=== PATIENT | female | born 2000 | race Caucasian/White ===

== ENCOUNTER → 2020-03-01 | Outpatient (CLI) | payer OTHER, SELFPAY ==
[2020-03-01 09:08] VITALS: BMI 31.2
[2020-03-01 18:04] LABS: Amphetamine Urine VISTA NEGATIVE (<1000 ng/mL); Barbiturate Urine VISTA NEGATIVE (< 200 ng/mL); Benzodiazepine Urine VISTA NEGATIVE (< 200 ng/mL); Cocaine Urine VISTA NEGATIVE (< 300 ng/mL); Ecstacy Urine VISTA NEGATIVE (< 500 ng/mL); Methadone Urine VISTA NEGATIVE (< 300 ng/mL); PCP Urine VISTA NEGATIVE (< 25 ng/mL); THC Urine VISTA NEGATIVE (< 50 ng/mL); Vista UDS pH Range 7
[2020-03-01 21:34] LABS: Chlamydia Trachomatis by PCR Negative (Negative); Neisserai gonorrhoeae by PCR Negative (Negative); Probe Check PASS; Sample Adequacy Control PASS; Specimen Processing Control PASS
== END | disposition home or self-care (01) ==
LOC: LABSPEC 15:56
PROVIDERS: PCP Family Medicine; Referring Provider Obstetrics & Gynecology; Visit Provider Obstetrics & Gynecology
DX: Z34.00 Encounter for supervision of normal first pregnancy, unspecified trimester (principal)
CPT/HCPCS: 80307; 87086; 87088; 87491; 87591

== ENCOUNTER → 2020-03-21 | Outpatient (CLI) | payer OTHER, SELFPAY ==
[2020-03-01 09:08] VITALS: BMI 31.2
[2020-03-21 11:14] LABS: Absolute Lymphocyte Count 1.43 X10^3/uL (0.83-4.51); Absolute Neutrophil Count 4.1 X10^3/uL (2.0-7.7); Basophil# 0.01 X10^3/uL; Basophil% 0.2 % (0-1); Eosinophil# 0.03 X10^3/uL; Eosinophils% 0.5 % (0-5); Hematocrit 37.4 % (37-47); Lymphocyte # 1.43 X10^3/ul (4.0); Lymphocyte % 23.8 % (19-41); Mean Corp Hgb Conc 34.8 g/dL (32-36); Mean Corpuscular Hgb 29.3 pg (27.0-32.0); Mean Corpuscular Volume 84.4 fL (81-99); Mean Platelet Vol. 10.4 fl (6.2-12.0); Monocyte% 6.6 % (0-10); NRBC Flagged by Analyzer 0 % (0-5); Neutrophil # 4.14 X10^3/uL (2.7-7.7); Neutrophil % 68.7 % (47-70); Platelet Count 209 K/mm3 (150-450); RBC Distribution Width CV 12.1 % (11.6-14.6); RBC Distribution Width SD 36.7 fl (35.1-43.9); Red Blood Count 4.43 M/mm3 (4.2-5.4)
[2020-03-21 12:23] LABS: HIV - WCH Non-Reactive (Nonreactive); Hepatitis B Surface Antigen Non-Reactive (Nonreactive); Hepatitis C Antibody Non-Reactive (Nonreactive); Rubella IgG 118.3 IU/mL
[2020-03-21 15:17] LABS: NATERA MAILED SPECIMEN
[2020-03-22 00:55] LABS: Rapid Plasmin Reagin (RPR) NONREACTIVE (NONREACTIVE)
[2020-03-23 13:15] LABS: V-Zoster IgG (Immunity) < 135 index (Immune >165)
== END | disposition home or self-care (01) ==
LOC: PAVLAB 10:45
PROVIDERS: PCP Family Medicine; Referring Provider Obstetrics & Gynecology; Visit Provider Obstetrics & Gynecology
DX: Z34.81 Encounter for supervision of other normal pregnancy, first trimester (principal)
CPT/HCPCS: 36415; 85025; 86592; 86703; 86762; 86787; 86803; 86850; 86900; 86901; 87340

== ENCOUNTER → 2020-03-30 | Outpatient (CLI) | payer OTHER, SELFPAY ==
[2020-03-30 09:11] VITALS: BMI 31.2
[2020-03-31 11:12] LABS: HSV 1 IgG < 0.91 index (0.00-0.90); HSV 2 IgG < 0.91 index (0.00-0.90)
== END | disposition home or self-care (01) ==
LOC: PAVLAB 09:17
PROVIDERS: PCP Family Medicine; Referring Provider Obstetrics & Gynecology; Visit Provider Obstetrics & Gynecology
DX: Z91.89 Other specified personal risk factors, not elsewhere classified (principal)
CPT/HCPCS: 36415; 86695; 86696

== ENCOUNTER → 2020-06-29 | Outpatient (CLI) | payer OTHER, SELFPAY ==
[2020-06-29 09:14] VITALS: BMI 31.2
[2020-06-29 10:42] LABS: Absolute Neutrophil Count 7.4 X10^3/uL (2.0-7.7); Basophil# 0.02 X10^3/uL; Basophil% 0.2 % (0-1); Eosinophil# 0.06 X10^3/uL; Eosinophils% 0.6 % (0-5); Hematocrit 35.8 % (37-47); Hemoglobin 12.1 g/dL (12.0-15.0); Lymphocyte % 16.4 % (19-41); Mean Corp Hgb Conc 33.8 g/dL (32-36); Mean Corpuscular Hgb 29.9 pg (27.0-32.0); Mean Corpuscular Volume 88.4 fL (81-99); Mean Platelet Vol. 10.4 fl (6.2-12.0); Monocyte# 0.61 X10^3/uL; Monocyte% 6.3 % (0-10); NRBC Flagged by Analyzer 0 % (0-5); Neutrophil # 7.36 X10^3/uL (2.7-7.7); Neutrophil % 75.7 % (47-70); Platelet Count 191 K/mm3 (150-450); RBC Distribution Width CV 13.1 % (11.6-14.6); RBC Distribution Width SD 42.7 fl (35.1-43.9); Red Blood Count 4.05 M/mm3 (4.2-5.4); White Blood Count 9.7 K/mm3 (4.4-11.0)
[2020-06-29 10:50] LABS: Glucose Challenge Gest 1H 50g 120 mg/dL (70-140)
[2020-06-29 10:55] LABS: Amphetamine Urine VISTA NEGATIVE (<1000 ng/mL); Barbiturate Urine VISTA NEGATIVE (< 200 ng/mL); Benzodiazepine Urine VISTA NEGATIVE (< 200 ng/mL); Cocaine Urine VISTA NEGATIVE (< 300 ng/mL); Ecstacy Urine VISTA NEGATIVE (< 500 ng/mL); Methadone Urine VISTA NEGATIVE (< 300 ng/mL); PCP Urine VISTA NEGATIVE (< 25 ng/mL); THC Urine VISTA NEGATIVE (< 50 ng/mL); Vista UDS pH Range 7
== END | disposition home or self-care (01) ==
PROVIDERS: PCP Family Medicine; Referring Provider Obstetrics & Gynecology; Visit Provider Obstetrics & Gynecology
DX: O09.90 Supervision of high risk pregnancy, unspecified, unspecified trimester (principal); O99.320 Drug use complicating pregnancy, unspecified trimester; F12.90 Cannabis use, unspecified, uncomplicated; Z3A.00 Weeks of gestation of pregnancy not specified
CPT/HCPCS: 36415; 80307; 82950; 85025

== ENCOUNTER → 2020-08-24 11:17 | Outpatient (CLI) | payer OTHER, SELFPAY ==
[2020-08-24 10:45] VITALS: BMI 33.8
[2020-08-24 11:35] LABS: Absolute Lymphocyte Count 0.95 X10^3/uL (0.83-4.51); Absolute Neutrophil Count 9.1 X10^3/uL (2.0-7.7); Basophil# 0.01 X10^3/uL; Basophil% 0.1 % (0-1); Eosinophil# 0.03 X10^3/uL; Eosinophils% 0.3 % (0-5); Hematocrit 37.7 % (37-47); Lymphocyte # 0.95 X10^3/ul (4.0); Lymphocyte % 8.7 % (19-41); Mean Corp Hgb Conc 34.5 g/dL (32-36); Mean Corpuscular Hgb 29.9 pg (27.0-32.0); Mean Corpuscular Volume 86.7 fL (81-99); Mean Platelet Vol. 10.1 fl (6.2-12.0); Monocyte# 0.78 X10^3/uL; Monocyte% 7.1 % (0-10); NRBC Flagged by Analyzer 0 % (0-5); Neutrophil # 9.12 X10^3/uL (2.7-7.7); Neutrophil % 83.2 % (47-70); Platelet Count 182 K/mm3 (150-450); RBC Distribution Width CV 12.8 % (11.6-14.6); Red Blood Count 4.35 M/mm3 (4.2-5.4)
[2020-08-24 11:50] LABS: ALB/GLOB Ratio 0.8 RATIO (0.9-2.4); AST(SGOT) 10 U/L (15-37); Alanine Aminotransfer ALT/SGPT 12 U/L (13-56); Alkaline Phosphatase 146 U/L (45-117); Anion Gap 4 (5-15); BUN 3 mg/dL (7-18); BUN/Creat Ratio 4.8 RATIO (10-20); Chloride 110 mmol/L (98-107); Creatinine, Serum 0.62 mg/dL (0.55-1.02); EST Glomerular Filtration Rate 128 mL/min (>60); Est Glom Filt Rate - Afr Amer 155 mL/min (>60); Globulin 3.8 g/dL (2.2-4.2); Glucose 85 mg/dL (74-106); Potassium 3.6 mmol/L (3.5-5.1); Protein, Total 6.8 g/dL (6.4-8.2); Sodium Level 138 mmol/L (136-145)
[2020-08-24 13:47] LABS: Protein, Urine (Random) 20.3 mg/dL (<11.9); Protein:Creat Ratio 147 mg/g CRE (0-200)
== END ==
PROVIDERS: PCP Family Medicine; Referring Provider Obstetrics & Gynecology; Visit Provider Obstetrics & Gynecology
DX: O16.9 Unspecified maternal hypertension, unspecified trimester (principal); Z3A.00 Weeks of gestation of pregnancy not specified
CPT/HCPCS: 36415; 80053; 82570; 84156; 85025

== ENCOUNTER 2020-09-05 15:16 | Outpatient (CLI) | payer OTHER, SELFPAY ==
[2020-09-05 14:37] VITALS: BMI 35.6
[2020-09-05 15:38] VITALS: BP 129/84; PULSE 76; TEMP 36.3; O2SAT 97
[2020-09-05 15:44] VITALS: BMI 35.3
[2020-09-05 15:52] VITALS: BP 121/82; PULSE 93
[2020-09-05 16:04] LABS: Hematocrit 34.1 % (37-47); Hemoglobin 11.5 g/dL (12.0-15.0); Mean Corp Hgb Conc 33.7 g/dL (32-36); Mean Corpuscular Hgb 29.4 pg (27.0-32.0); Mean Corpuscular Volume 87.2 fL (81-99); Mean Platelet Vol. 10.2 fl (6.2-12.0); Platelet Count 167 K/mm3 (150-450); RBC Distribution Width CV 13.2 % (11.6-14.6); RBC Distribution Width SD 41.1 fl (35.1-43.9); Red Blood Count 3.91 M/mm3 (4.2-5.4); White Blood Count 10.5 K/mm3 (4.4-11.0)
[2020-09-05 16:07] VITALS: BP 127/79; PULSE 85
[2020-09-05 16:22] VITALS: BP 128/77; PULSE 80
[2020-09-05 16:35] LABS: Protein, Urine (Random) 6.5 mg/dL (<11.9); Protein:Creat Ratio 162 mg/g CRE (0-200)
[2020-09-05 16:37] VITALS: BP 131/71; PULSE 69
[2020-09-05 16:49] LABS: AST(SGOT) 13 U/L (15-37); Alanine Aminotransfer ALT/SGPT 14 U/L (13-56); Creatinine, Serum 0.47 mg/dL (0.55-1.02); EST Glomerular Filtration Rate 179 mL/min (>60); Est Glom Filt Rate - Afr Amer 216 mL/min (>60); Uric Acid 4.8 mg/dL (2.6-6.0)
--- NOTE | 2020-09-05 18:13 | OB.TRI.PN_ITS ---
Progress Notes Date of Service: 09/05/20 Progress Note: Patient presents for triage evaluation secondary to elevated blood pressures in the office. Patient also reports intermittent vision changes. No vision changes currently. Otherwise asymptomatic. FHT: Moderate variability reactive no decelerations category I tracing [place]: Irregular contractions Assessment and plan: Reactive NST, reassuring maternal and status patient discharged to home to follow-up at next scheduled visit. See problem list details for additional plan information. Laboratory Studies: Laboratory Tests 09/05/20 09/05/20 09/05/20 Range/Units 15:55 15:55 15:55 WBC 10.5 (4.4-11.0) K/mm3 RBC 3.91 L (4.2-5.4) M/mm3 Hgb 11.5 L (12.0-15.0) g/dL Hct 34.1 L (37-47) % MCV 87.2 (81-99) fL MCH 29.4 (27.0-32.0) pg MCHC 33.7 (32-36) g/dL RDW Std Deviation 41.1 (35.1-43.9) fl RDW Coeff of Nick 13.2 (11.6-14.6) % Plt Count 167 (150-450) K/mm3 MPV 10.2 (6.2-12.0) fl Creatinine 0.47 L (0.55-1.02) mg/dL Estim Creat Clear Calc 163.50 ml/min Est GFR (MDRD) Af Amer 216 (>60) mL/min Est GFR (MDRD) Non-Af 179 (>60) mL/min Uric Acid 4.8 (2.6-6.0) mg/dL AST 13 L (15-37) U/L ALT 14 (13-56) U/L U Random Total Protein 6.5 (<11.9) mg/dL Urine Creatinine 40.10 (NO RANGE EST.) mg/dL Protein/Creatinin Ratio 162 (0-200) mg/g CRE - Problem List (1) Transient hypertension of Status: Acute Comment: BPs mild range at last 2 visits and seeing spots at 09/05 visit. Sent to triage. Multi Select Codes - Urinary/Genital Urinary/Genital CPT Codes: 90358-10 non-stress test Interp
== END 2020-09-05 16:55 | disposition home or self-care (01) ==
LOC: WPOUT 15:17 → OBT 15:18
PROVIDERS: PCP Family Medicine; Referring Provider Obstetrics & Gynecology; Visit Provider Obstetrics & Gynecology
DX: O13.9 Gestational [pregnancy-induced] hypertension without significant proteinuria, unspecified trimester (principal)
CPT/HCPCS: 36415; 59025; 82565; 82570; 84156; 84450; 84460; 84550; 85027; 99218; G0378

== ENCOUNTER 2020-09-13 05:20 | Inpatient (IN) | payer OTHER, SELFPAY ==
[2020-09-13] VITALS (72 sets, daily range): BP systolic 97–137; BP diastolic 54–90; PULSE 59–245; TEMP 36.4–38.7; O2SAT 83–100; BMI 35.6
[2020-09-13] MEDS: Lactated Ringers 1,000 ML 50 ML IV (05:30)
[2020-09-13 05:41] LABS: Absolute Lymphocyte Count 2.17 X10^3/uL (0.83-4.51); Absolute Neutrophil Count 8.2 X10^3/uL (2.0-7.7); Basophil# 0.01 X10^3/uL; Basophil% 0.1 % (0-1); Eosinophil# 0.04 X10^3/uL; Eosinophils% 0.4 % (0-5); Hematocrit 35.3 % (37-47); Hemoglobin 11.8 g/dL (12.0-15.0); Lymphocyte # 2.17 X10^3/ul (4.0); Lymphocyte % 19.4 % (19-41); Mean Corp Hgb Conc 33.4 g/dL (32-36); Mean Corpuscular Hgb 29.6 pg (27.0-32.0); Mean Corpuscular Volume 88.7 fL (81-99); Mean Platelet Vol. 10.7 fl (6.2-12.0); Monocyte# 0.73 X10^3/uL; Monocyte% 6.5 % (0-10); NRBC Flagged by Analyzer 0 % (0-5); Neutrophil # 8.18 X10^3/uL (2.7-7.7); Neutrophil % 73.2 % (47-70); Platelet Count 166 K/mm3 (150-450); RBC Distribution Width CV 13.2 % (11.6-14.6); RBC Distribution Width SD 42.7 fl (35.1-43.9); Red Blood Count 3.98 M/mm3 (4.2-5.4); White Blood Count 11.2 K/mm3 (4.4-11.0)
[2020-09-13 05:46] LABS: Group B Strep DNA By PCR Negative (Negative); Internal Control PASS; Probe Check PASS; Specimen Processing Control PASS
[2020-09-13] MEDS: Ondansetron 4 MG/2 ML Vial IV ×2 (06:30→19:21)
--- NOTE | 2020-09-13 09:36 | HP.PCM_ITS ---
- Problem List (1) Active labor at term Status: Acute (2) Transient hypertension of Status: Acute Comment: BPs mild range at last 2 visits and seeing spots at 09/05 visit. Sent to triage. (3) 36 weeks gestation of Status: Acute Comment: electronic covid test ordered 09/05/2020 (scheduled for 09/28/2020 at 0940) (4) Supervision of high risk , antepartum Status: Acute Comment: PRR YASH 10/04/2020 boy [place] BF: Artemio (5) At risk for sexually transmitted disease due to partner with genital herpes Status: Acute Comment: HSV titers drawn 03/30- negative, repeat PRN, discussed prevention (6) Susceptible to varicella (non-immune), currently Status: Acute Comment: did receive vaccine, likely immune but recommend avoidance. plan vaccine (7) Marijuana smoker Status: Acute Comment: quit. plan random tox screen. (8) Anxiety and depression Status: Chronic Comment: no meds, was on Zoloft 50mg in past, encouraged counseling (9) Status: Acute Qualifiers: Comment: declines carrier, genetic low risk, ntd screening declined. us scheduled 05/14 at [facility], anatomy normal History Date of Admission: 09/13/20 Final YASH: 10/04/20 Gestational age: 37 Weeks and 0 Days History of this : This is a 20 year-old, G [], P [], at 37 weeks gestational age. Medical History: Medical History (Last Reviewed 09/05/20 @ 14:37 by Ronit Contreras) Anxiety and depression (Chronic) F41.9, F32.9 no meds, was on Zoloft 50mg in past, encouraged counseling Surgical History: Surgical History (Last Reviewed 09/05/20 @ 14:37 by Ronit Contreras) History of wisdom tooth extraction, class IV edentulism K08.494 Allergies No Known Allergies Allergy (Verified 09/13/20 03:08) Home Medications: Home Medications Vits [Prenatabs FA] 1 tab PO DAILY 09/05/20 Famotidine 20 mg PO DAILY 09/13/20 Smoking Status: Never smoker Alcohol: None NST - FHR Rate Baby A Baseline: 140 Variability:: Moderate Accelerations:: 15 x 15 Decelerations:: None NST Reactive:: Yes FHR Category:: Category I Uterine Activity:: q1-3min History Past Pregnancies: Pregancy History 2 Elective abortions Hx Para 0 Spontaneous abortions 1 Hx # Term Pregnancies Ectopic pregnancies Hx # Pregnancies Multiple births # of living children 0 Past Pregnancies Del. Date Name GA/Weeks Outcome Route Bth Weight Gen Labor Lgth Anesthesia Del Locatn Provider FOB Unknown Missed AB- 10/2017 Labs: Mom's Microbiology 09/13/20 05:30 Mucosa - Nose SARS-CoV-2 Antigen (Rapid) - Final 09/13/20 Unknown Genital vaginal Group B Streptococcus Culture - Pending Mom's Problem List Problem Status Onset Code Active labor at term Acute Transient hypertension of Acute O13.9 36 weeks gestation of Acute Z3A.36 Supervision of high risk , antepartum Acute O09.90 At risk for sexually transmitted disease due to partner with genital herpes Acute Z91.89 Susceptible to varicella (non-immune), currently Acute O09.899, Z28.3 Marijuana smoker Acute F12.90 Anxiety and depression Chronic F41.9, F32.9 Acute Z34.90 Mom's Labs & Results 09/13/20 09/13/20 09/13/20 04:12 05:30 05:30 WBC 11.2 H RBC 3.98 L Hgb 11.8 L Hct 35.3 L MCV 88.7 MCH 29.6 MCHC 33.4 RDW Std Deviation 42.7 RDW Coeff of Nick 13.2 Plt Count 166 MPV 10.7 Immature Gran % (Auto) 0.400 Neut % (Auto) 73.2 H Lymph % (Auto) 19.4 [place] % (Auto) 6.5 Eos % (Auto) 0.4 Baso % (Auto) 0.1 Absolute Neuts (auto) 8.2 H Absolute Lymphs (auto) 2.17 Nucleated RBC % 0 Group B Strep DNA Negative Specimen Comment Not Reportable Blood Type A POSITIVE Antibody Screen NEGATIVE Course Did the patient receive Yes care? Labs Blood Type: A RH: POSITIVE RPR/VDRL/Syphilis Nonreactive Rubella status Immune HbSAg Negative Date Done: 03/21/20 Chlamydia Negative Gonorrhea Negative HIV/AIDS Non-Reactive Group B Strep: Collected on Admission Current Obstetrical History Gestational Diabetes No Incompetent Cervix No Infertility No IUGR No Macrosomia No Hypertension/Pre-eclampsia No: was in triage for elevated pressures, normal upon assessment in triage Placenta Previa/Abruption No PTL/PROM No Uterine anomaly No Oligohydramnios No Polyhydramnios No Multiple gestation No Past Medical History Asthma No Diabetes No Hypertension No Heart disease No Mitral valve prolapse No Neurologic/Seizure disorder/ No Migraines Kidney disease No Liver disease No Varicosities No Clotting disorders/Hx of DVT No Thyroid Dysfunction No Other medical diseases No Psychiatric disorders Yes: anxiety and depression before , no longer taking meds during preg Major trauma No Abnormal PAP smear No Sleep apnea No Mammogram in the last 2 years No Social History Marital Status: SINGLE Alleged father Artemio Mohr Hx Smoking No Smoking Status Never smoker Expected Delivery Method: Spontaneous Vaginal Describe any other labor & delivery plans:: Expected Delivery Route/Plan. Labor Preferences-. labor support person: Artemio. pain management options preferred: Desires natural, but open to epidural. labor interventions: open to standard interventions. cut cord/dad catch: maybe. : Yes. PP control planned: undecided. discussed possible routes of delivery and associated risks: discussed possible delivery modalities and possible indications for each including R/B/A of , VAVD, FAVD, and CS. questions answered. special requests: none. Specific Issue/Plans. flu vaccine: 06/29. tdap vaccine: 06/29. rhogam: na. LARC form signed: declined. movement and labor precautions reviewed. Review of Systems Constitutional: Denies: Chills, Fever Cardiovascular: Reports: Edema. Denies: Chest Pain Respiratory: Denies: Shortness of Breath Gastrointestinal: Reports: Abdominal Pain. Denies: Nausea, Vomiting Gynecological: Denies: Vaginal bleeding, Vaginal discharge, Vaginal itching Psychiatric: Denies: Anxiety, Depression Physical Exam Vitals: Vital Signs Temp Pulse BP Pulse Ox 98.1 F 73 120/71 98 09/13/20 07:41 09/13/20 09:05 09/13/20 09:04 09/13/20 09:05 General: Alert, Oriented x3, Cooperative, No apparent distress, Well developed, Well nourished HEENT: Atraumatic, PERRLA, EOMI, Normocephalic Cardiovascular: Regular rate Lungs: Normal air movement Abdomen: Soft, Non Tender, Non-Distended, Gravid, Appropriate for Gestational Age Neurological: Cranial nerves II-XII grossly intact, Neuro grossly intact [employer]: Normal external genitalia. Negative for: Vulvar lesions Estimated gestational size: Appropriate for gestational size Presentation: Cephalic Cervix Dilation (cm): 5 Station: -2 Effacement (%): 70 Assessment/Plan All Active Problems (Last Reviewed 09/05/20 @ 14:37 by Ronit Contreras) Active labor at term (Acute) Transient hypertension of (Acute) 36 weeks gestation of (Acute) Supervision of high risk , antepartum (Acute) At risk for sexually transmitted disease due to partner with genital herpes (Acute) Susceptible to varicella (non-immune), currently (Acute) Marijuana smoker (Acute) (Acute) This is a 20 year-old, G 2, P 0, at 37 weeks gestational age. Patient presents IAL, plan expectant management for , pitocin/AROM PRN if needed. Pain management: Plans natural, but open to epidural. GBS unknown - rapid GBS negative. Management of any complications: None I have reviewed the [facility] and made any clinically relevant updates.
[2020-09-13] MEDS: Lactated Ringers 500 ML 999 ML IV ×2 (09:37→19:41)
[2020-09-13] MEDS: fentaNYL-bupivacaine (epidural) 100 ML BAG EPIDURAL ×3 (10:39→19:21)
[2020-09-13] MEDS: Lactated Ringers 1,000 ML 200 ML IV ×2 (14:10→18:51)
[2020-09-13] MEDS: proCHLORPERazine 10 MG/2 ML Vial IV (20:05)
[2020-09-13] MEDS: 0.9% Saline Lock 10 ML Syringe IV (20:06)
[2020-09-13] MEDS: Acetaminophen 500 MG Tablet PO (20:26)
[2020-09-13] MEDS: Oxytocin 30 units/NS 500 ml 30 UNITS/500 ML IV.SOLN 334 UNITS IV (21:28)
--- NOTE | 2020-09-13 21:42 | PLAC_PTH ---
PATIENT: JEANETTE CORNELL LOC: [facility] U#:[id number] AGE/SX: 20/F ROOM: WP003 RE09/13/[address]: Dr. Elaine Ludwig MD : 2000 BED: 1 DIS: 09/15/2020 SPEC #: [id number] RECD: 09/13/20 23:45 STATUS: ABRAM RERaphael #: [id number] HEMA: 09/13/20 21:[address]: Elaine Ludwig DEPT: SURGICAL PATHOLOGY RECD BY: [place] ENTERED: 09/14/20 07:13 SP TYPE: PLACENTA OTHR DR: Dr. Verito Titus MD Tissues: Placenta, NOS Procedures: Surgery Specimen Level V HEADER OPERATION: Vaginal delivery PRE-OP DIAGNOSIS: Suspected triple I TISSUE SUBMITTED: Placenta MICROSCOPIC DIAGNOSIS Turner placenta (527 gm): Umbilical cord - trivascular with no inflammation. Placental membranes - focal acute deciduitis. Placental disc - Ryanne-Ken change and mild intervillous congestion. AM:richy 09/18/20 MICROSCOPIC DESCRIPTION Slides are reviewed. GROSS DESCRIPTION SPECIMEN: PLACENTA / CLINICAL INFORMATION: A. Weight: 3.155 kg B. Gestational Age: 37 weeks C. Sex: Male PLACENTAL WEIGHT (POST FIXATION): 527 gm PLACENTAL DIMENSIONS: 16 x 18 x 4 cm PLACENTAL SHAPE: Usual ovoid PLACENTAL WEIGHT FOR GESTATIONAL AGE: Within 10-99th percentile MEMBRANES - Present A. Insertion: Marginal B. Site of rupture from edge: At edge of placental disc C. Color of membrane: Moreno-lin D. Abnormalities: None UMBILICAL CORD - Present A. Color: Moreno-lin B. Insertion: Paracentral C. Length: 30 cm D. Diameter: 1.5 cm E. Number of vessels: Three F. Abnormalities: None PLACENTAL DISC - Present A. Color of surface: Moreno-lin B. surface abnormalities: None C. Maternal cotyledons: Intact with minimal tears D. Attached retro placental clot: No clot E. Cut surface: Dark red and spongy F. Lesions: None G. Separate clot: Absent SECTIONS SUBMITTED: 1. Membrane roll 2. Cord, maternal end 3. Cord, end 4. Placental disc, and maternal surfaces 5. Placental disc, and maternal surfaces 6. Placental disc, and maternal surfaces SJ:richy 09/17/20 TC:2 CPT: 55685
--- NOTE | 2020-09-13 21:43 | OP.PCM_ITS ---
Problem List (1) Active labor at term Status: Acute (2) Transient hypertension of Status: Acute Comment: BPs mild range at last 2 visits and seeing spots at 09/05 visit. Sent to triage. (3) 36 weeks gestation of Status: Acute Comment: electronic covid test ordered 09/05/2020 (scheduled for 09/28/2020 at 0940) (4) Supervision of high risk , antepartum Status: Acute Comment: PRR YASH 10/04/2020 boy [place] BF: Artemio (5) At risk for sexually transmitted disease due to partner with genital herpes Status: Acute Comment: HSV titers drawn 03/30- negative, repeat PRN, discussed prevention (6) Susceptible to varicella (non-immune), currently Status: Acute Comment: did receive vaccine, likely immune but recommend avoidance. plan vaccine (7) Marijuana smoker Status: Acute Comment: quit. plan random tox screen. (8) Anxiety and depression Status: Chronic Comment: no meds, was on Zoloft 50mg in past, encouraged counseling (9) Status: Acute Qualifiers: Comment: declines carrier, genetic low risk, ntd screening declined. us scheduled 05/14 at [facility], anatomy normal Vaginal Delivery Maternal Presentation: Active Labor 20-year-old G2, P0 at 37 weeks gestation admitted in active labor. Patient augmented only with artificial rupture of membranes. Made slow cervical change to complete dilation. Method of Induction: Amniotomy Amniotic Membrane Rupture Type: Artificial Amniotic Fluid Description: Clear Final YASH: 10/04/20 Gestational age: 37 Weeks and 0 Days Date of Procedure: 09/13/20 Pre-Operative Diagnosis: Term , active labor, suspected triple I Post-Operative Diagnosis: Same Surgery/ Procedure Performed: Spontaneous Vaginal Delivery Type of Anesthesia: Epidural Description of Procedure: Patient began pushing and delivered the head in the PAUL presentation. The head was delivered atraumatically and no nuchal cord was noted. The anterior and posterior shoulders delivered without complication followed by the rest of the and the infant was placed on the maternal abdomen. Delayed cord clamping was employed for approximately 60 seconds. Cord was clamped and cut and gentle traction was applied to the cord and the placenta delivered spontaneously immediately following it was noted to be intact with three-vessel cord. The perineum and vagina were inspected and a second-degree perineal laceration was noted and repaired in the standard fashion using 3-0 Vicryl rapide suture. EBL was 200 cc. Patient and infant tolerated delivery well. Presentation: Vertex, PAUL Placental Delivery Description: Spontaneous Placenta Disposition: Sent to Pathology Cord Vessel Description: 3 Vessels Cord Entanglement: None Estimated Blood Loss: 200 cc Infant A gender: Male Episiotomy Description: None Laceration: Midline, Perineal Extension/lac, 2nd degree Medications given after delivery: IV Pitocin Complications: None Multi Select Codes - Urinary/Genital Urinary/Genital CPT Codes: 20646 Vaginal Delivery [facility]
--- NOTE | 2020-09-13 21:47 | DCINST_ITS ---
Discharge Diet: No Restrictions Discharge Activity: Return to Normal Activity, May not drive while taking narcotic pain medications., May Shower May resume sexual activity in: 4-6 weeks Additional Activity Instructions:: Nothing in the vagina for 4-6 weeks. You may return to work/school in 6 weeks. Call your doctor if your incision/area has: Continuous Slow Oozing, Sudden Increased Bleeding, Increased Pain/ Swelling, Increased Redness, Foul Smelling Discharge Additional Instructions: If you experience any of the following, contact your healthcare provider. * Bleeding that soaks a pad every hour for 2 hours * Fever 100.4 or higher * Unrelieved incision or abdominal pain * Swelling, redness, discharge or bleeding from your incision or episiotomy site * Your incision begins to separate * Problems urinating (including inability to urinate or burning while urinating). * Visual changes * Severe headache * Flu-like symptoms * Pain or redness in one of both of your breasts * Pain, warmth, tenderness or swelling in your legs, especially the calf area * Frequent nausea and vomiting * Symptoms of depression or anxiety If you experience any of the following, call 911 or go to the nearest Emergency Room. * Chest pain * Problems breathing * Seizure activity * Partial or complete paralysis of a body part, slurred speech, weakness or drooping of the face, or a sudden inability to walk or hold your balance Allergies/Adverse Reactions: Allergies No Known Allergies Allergy (Verified 09/13/20 03:08) Medications to take at Discharge Vits [Prenatabs FA] 1 tab PO DAILY 09/05/20 Famotidine 20 mg PO DAILY 09/13/20 When: Call to make an appointment with your doctor in 6 weeks. If you had elevated Blood Pressure or 4th degree laceration you will need to be seen in 2 weeks. Primary Care Physician: Verito Titus MD [Primary Care Provider] - Test Results: Test results from this visit will be discussed in further detail at your follow- up appointment, if applicable.
--- NOTE | 2020-09-13 23:12 | NURSING ---
Per Pharmacy recommendation, Ampicillin to infuse with Normal saline after Pitocin bolus completed.
[2020-09-14] MEDS: 0.9% Saline Lock 10 ML Syringe IV ×6 (00:19→22:04)
[2020-09-14 03:26] VITALS: BP 129/58; PULSE 86; O2SAT 100
[2020-09-14 03:27] VITALS: BP 129/58; PULSE 76; RESP 18; TEMP 37.1; O2SAT 98
--- NOTE | 2020-09-14 07:47 | PCM.PN.OB ---
Patient Problems: Active and Suspected Problems (Last Reviewed 09/05/20 @ 14:37 by Ronit Contreras) Active labor at term (Acute) Transient hypertension of (Acute) BPs mild range at last 2 visits and seeing spots at 09/05 visit. Sent to triage. 36 weeks gestation of (Acute) electronic covid test ordered 09/05/2020 (scheduled for 09/28/2020 at 0940) Supervision of high risk , antepartum (Acute) PRR YASH 10/04/2020 boy [place] BF: Artemio At risk for sexually transmitted disease due to partner with genital herpes (Acute) HSV titers drawn 03/30- negative, repeat PRN, discussed prevention Susceptible to varicella (non-immune), currently (Acute) did receive vaccine, likely immune but recommend avoidance. plan vaccine Marijuana smoker (Acute) quit. plan random tox screen. (Acute) declines carrier, genetic low risk, ntd screening declined. us scheduled 05/14 at [facility], anatomy normal Subjective: Patient doing well without complaints. Tolerating PO. Ambulating and voiding without difficulty. feeding well. Denies chest pain, shortness of breath, calf pain/swelling, fevers, chills, lightheadedness. - Physical Exam Vitals/I&O's: Vital Signs Temp Pulse Resp BP Pulse Ox 98.7 F 76 18 129/58 H 98 09/14/20 03:27 09/14/20 03:27 09/14/20 03:27 09/14/20 03:27 09/14/20 03:27 Oxygen Delivery Method Room Air Weight: 207 lb 12.8 oz Body Mass Index (BMI) 35.6 Intake and Output for Last 24 Hours 09/12/20 09/13/20 09/14/20 23:59 23:59 23:59 Intake Total 5081.59 / 5081.59 505.17 / 505.17 Output Total 1200 / 1200 700 / 700 Balance 3881.59 / 3881.59 -194.83 / -194.83 General: Alert, Oriented x3 Microbiology Past 72 Hours 09/13/20 05:30 Mucosa - Nose SARS-CoV-2 Antigen (Rapid) - Final Current Medications Acetaminophen (Acetaminophen 500 Mg Tablet) 1,000 mg PO Q8H PRN PRN PRN Reason: Pain Score 1-3 Bisacodyl (Bisacodyl 10 Mg Suppository) 10 mg RECTAL UD PRN PRN Reason: If no BM Dibucaine (Dibucaine 30 Gm Tube) 1 applic TOPICAL TID PRN PRN; Protocol PRN Reason: Discomfort Famotidine (Famotidine 20 Mg Tablet) 20 mg PO DAILY MARIE Hydrocortisone (Hydrocortisone 2.5% Crm) 1 applic TOPICAL TID PRN PRN; Protocol PRN Reason: Discomfort Gentamicin Sulfate 270 mg/ (Dextrose) 56.75 mls @ 100 mls/hr IVPB Q24H [facility] Stop: 09/14/20 22:01 Last Infusion: 09/13/20 23:00 Dose: Infused Documented by: Ampicillin Sodium 2 gm/ Sodium (Chloride) 100 mls @ 200 mls/hr IV Q6H [facility] Last Infusion: 09/14/20 06:52 Dose: Infused Documented by: Ibuprofen (Ibuprofen 600 Mg Tablet) 600 mg PO Q6H PRN PRN PRN Reason: Pain Score 1-3 Methylergonovine Maleate (Methylergonovine 0.2 Mg/Ml Ampul) 0.2 mg IM X1 PRN PRN Reason: Excess bleeding/uterine atony Ondansetron HCl (Ondansetron 4 Mg/2 Ml Vial) 4 mg IV Q4H PRN PRN PRN Reason: Nausea Oxycodone HCl (Oxycodone 5 Mg Tablet) 5 - 10 mg PO Q4H PRN PRN PRN Reason: Pain Score 4-10 Prochlorperazine Edisylate (Prochlorperazine 10 Mg/2 Ml Vial) 10 mg IV Q6H PRN PRN PRN Reason: NAUSEA/VOMITING Senna/Docusate Sodium (Senna/Docusate Sodium 1 Tablet) 1 - 2 tablet PO DAILY PRN PRN PRN Reason: Constipation Simethicone (Simethicone 80 Mg Tablet) 80 mg PO PCHS PRN PRN Reason: Indigestion/Stomach pain Sodium Chloride (0.9% Saline Lock 10 Ml Syringe) 5 - 15 ml IV UD PRN PRN Reason: SALINE FLUSH Last Admin: 09/14/20 06:12 Dose: 10 ml Documented by: Medical Necessity - Tobacco Use Smoking Status: Never smoker Assessment/Plan All Active Problems (Last Reviewed 09/05/20 @ 14:37 by Ronit Contreras) Active labor at term (Acute) Transient hypertension of (Acute) 36 weeks gestation of (Acute) Supervision of high risk , antepartum (Acute) At risk for sexually transmitted disease due to partner with genital herpes (Acute) Susceptible to varicella (non-immune), currently (Acute) Marijuana smoker (Acute) (Acute) s/p PPD # 1 1. routine post delivery care 2. breast feeding- support given 3. rh positive 4. rubella immune
[2020-09-14 09:00] VITALS: BP 115/61; PULSE 78; RESP 16; TEMP 36.7
[2020-09-14] MEDS: Famotidine 20 MG Tablet PO (10:05)
[2020-09-14 13:05] VITALS: BP 115/71; PULSE 88; RESP 16; TEMP 36.1
--- NOTE | 2020-09-14 15:41 | CASEMGMT ---
Social Work Assessment Labor and Delivery Unit Patient Address: [address] [place] [address] [address], [place] [id number] Phone number: [phone] Date of Referral: 09/14/2020 Time of Referral: 801 Referred By: Dr. Ludwig Date of Intervention: 09/14/2020 Time of Intervention: 1529 Reason for Referral: Maternal history of depression and anxiety, remote history of marijuana use. History obtained from: Medical records and mother of baby (MOB) Colten Leal. Household composition: MILTON reports she has recently been staying with the father of baby (FOB) and his parents. At discharge from the hospital however MOB and FOB, along with the infant, will be going to MOB parents home. Home situation is reported to be safe and adequate. Patient's parent/guardian status: MILTON is a 20-year-old single female involved with the FOB Artemio Mohr for about a year. MILTON denies any form of abuse, control, or intimidation in this relationship. [place] baby Hadley Mohr is the first baby for both parents. Baby Hadley was born on 09/13/2020. Medical History: MILTON is 2, para 0 now 1 after delivering all of her. care started at 13 weeks gestation. care regular thereafter. Delivery occurred at 37 weeks gestation. weight for all of her was 6 pounds 15 ounces. Apgars 8 and 8 at 1 and 5 minutes of life. MILTON experienced a first trimester miscarriage in October 2017. Educational Status: MILTON reports to have an associates degree. Reports to be able to read, write, and denies any issues with learning comprehension. 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 FOB works as a saldaña with an [employer] crib. Infant Supplies: MILTON reports to have all needed baby supplies at her parents home, including a crib, bassinet, pack and play, car seat, clothes, diapers, and wipes. MILTON is planning to breast-feed at this point. Childcare/Caregiver(s): MILTON will be the primary caregiver along with help from the FOB when he is not working. MILTON has already started to think about childcare when MILTON returns to work. Transportation: MOB denies any issues with transportation. Programs/Agencies Involved: MILTON is not currently involved with any community agencies. MOB receptive to applying for Medicaid for the baby, as MOB is currently on her own mother's insurance. MOB also agreeable to take information on WIC. Agrees to information only on help me grow. Children Services/Legal Issues: None reported. Behavioral Health Issues: Mental Health History: MOB reports history of depression and anxiety for which she was on medication for about a year. MOB reports she went off of the medication about a month before becoming . MOB reports believe that her mood and anxiety was well controlled during the , without medication. MOB denies any history of suicidal ideation or attempt. No history of counseling. Substance Use History: MOB reports history of marijuana use prior to . MOB reports last use was about 2 months prior to . MOB did have 2 drug screens during this which were negative. MOB denies any history of other illicit drug use. Reports history of social alcohol use, but not during . Denies tobacco use. Family History: MOB is not aware of any person in her family with a history of drug or alcohol, or mental health issues. ALLEN PE reportedly has depression and anxiety, and is on medication for such. Drug Screens: MOB with negative drug screens on 03/01/2020 and 06/29/2020. Due to history of marijuana usage, and it being unclear when last usage was, meconium drug screen was obtained. Baby's urine drug screen is negative. Family/Social Stressors: was unplanned, but accepted. Does admit to some worry about how life would change after having a baby. Support Systems: MOB reports that her parents and the FOB are good supports, and will be helpful with practical matters. MOB reports to female friends who are great emotional supports. 1 of those friends already has a 1-year-old and the other friend is currently and will be delivering soon. Depression/Shaken Baby/Safe Sleeping information provided on shaken baby prevention and safe sleeping. Discussed with MOB mood and anxiety, risk factors, and importance of seeking help. Written information also provided. ASSESSMENT: Met with MOB alone. Baby was brought back to the room midway through conversation. MOB reports the FOB had gone home to wash his truck. MOB held normal eye contact, affect constricted, mood congruent to content discussed. Did observe MOB glancing over at baby intermittently during conversation, and did smile when talking about the baby. MOB reports to have needed supplies to care for the baby, reports to have adequate support living with her parents. MOB reports that her mom and dad have each taken a week off of work, so will be around and able to help MOB with the transition home. MOB reports to feel her mood right now is stable, is aware of medication, and also reports if needed would be open to counseling. MOB endorses to have positive thoughts and feelings about the baby. MOB receptive to social welfare research worker providing community resources which may be helpful down the road. Provided MOB with an [facility] resource list, and Medicaid application, one 800-number for the [place] Medicaid benefit slide, and [employer] applications. mood and anxiety disorder packet provided, which includes online resources. MOB has also been given resources for counseling locally. Note, when this teletypewriter installer returned with the Medicaid and [employer] applications, the MOB was holding the baby gently and appropriately. Safe Plan of Care for infant related to substance use: MOB states intent to continue abstinence of drugs in the future. Voices understanding that breast-feeding and marijuana use are not conducive with childcare. PLAN: MOB and baby will discharge home to MOB parental home, with MOB parents able to help provide support to the MOB and FOB. Local resources provided including applications for additional financial assistance, and information to support MOB with mood and anxiety issues that may arise. No other services requested or indicated. -ERIK Gastelum MSW *Information documented in this assessment generated with [employer]*
[2020-09-14 16:49] VITALS: BP 113/80; PULSE 78; RESP 16; TEMP 36.5
[2020-09-14 21:50] VITALS: BP 110/61; PULSE 80; RESP 16; TEMP 36.9; O2SAT 100
[2020-09-15 02:00] VITALS: BP 114/73; PULSE 73; RESP 14; TEMP 36.7; O2SAT 97
--- NOTE | 2020-09-15 07:20 | PCM.PN.OB ---
Patient Problems: Active and Suspected Problems (Last Reviewed 09/05/20 @ 14:37 by Ronit Contreras) Active labor at term (Acute) Transient hypertension of (Acute) BPs mild range at last 2 visits and seeing spots at 09/05 visit. Sent to triage. 36 weeks gestation of (Acute) electronic covid test ordered 09/05/2020 (scheduled for 09/28/2020 at 0940) Supervision of high risk , antepartum (Acute) PRR YASH 10/04/2020 boy Hadley BF: Artemio At risk for sexually transmitted disease due to partner with genital herpes (Acute) HSV titers drawn 03/30- negative, repeat PRN, discussed prevention Susceptible to varicella (non-immune), currently (Acute) did receive vaccine, likely immune but recommend avoidance. plan vaccine Marijuana smoker (Acute) quit. plan random tox screen. (Acute) declines carrier, genetic low risk, ntd screening declined. us scheduled 05/14 at [facility], anatomy normal Subjective: Patient doing well without complaints. Tolerating PO. Ambulating and voiding without difficulty. feeding well. Denies chest pain, shortness of breath, calf pain/swelling, fevers, chills, lightheadedness. - Physical Exam Vitals/I&O's: Vital Signs Temp Pulse Resp BP Pulse Ox 98.1 F 73 14 114/73 97 09/15/20 02:00 09/15/20 02:00 09/15/20 02:00 09/15/20 02:00 09/15/20 02:00 Oxygen Delivery Method Room Air Weight: 207 lb 12.8 oz Body Mass Index (BMI) 35.6 Intake and Output for Last 24 Hours 09/13/20 09/14/20 09/15/20 23:59 23:59 23:59 Intake Total 5081.59 / 5081.59 761.92 / 761.92 Output Total 1200 / 1200 700 / 700 Balance 3881.59 / 3881.59 61.92 / 61.92 Microbiology Past 72 Hours 09/13/20 05:30 Mucosa - Nose SARS-CoV-2 Antigen (Rapid) - Final Current Medications Acetaminophen (Acetaminophen 500 Mg Tablet) 1,000 mg PO Q8H PRN PRN PRN Reason: Pain Score 1-3 Bisacodyl (Bisacodyl 10 Mg Suppository) 10 mg RECTAL UD PRN PRN Reason: If no BM Dibucaine (Dibucaine 30 Gm Tube) 1 applic TOPICAL TID PRN PRN; Protocol PRN Reason: Discomfort Famotidine (Famotidine 20 Mg Tablet) 20 mg PO DAILY MARIE Last Admin: 09/14/20 10:05 Dose: 20 mg Documented by: Hydrocortisone (Hydrocortisone 2.5% Crm) 1 applic TOPICAL TID PRN PRN; Protocol PRN Reason: Discomfort Ibuprofen (Ibuprofen 600 Mg Tablet) 600 mg PO Q6H PRN PRN PRN Reason: Pain Score 1-3 Methylergonovine Maleate (Methylergonovine 0.2 Mg/Ml Ampul) 0.2 mg IM X1 PRN PRN Reason: Excess bleeding/uterine atony Ondansetron HCl (Ondansetron 4 Mg/2 Ml Vial) 4 mg IV Q4H PRN PRN PRN Reason: Nausea Oxycodone HCl (Oxycodone 5 Mg Tablet) 5 - 10 mg PO Q4H PRN PRN PRN Reason: Pain Score 4-10 Prochlorperazine Edisylate (Prochlorperazine 10 Mg/2 Ml Vial) 10 mg IV Q6H PRN PRN PRN Reason: NAUSEA/VOMITING Senna/Docusate Sodium (Senna/Docusate Sodium 1 Tablet) 1 - 2 tablet PO DAILY PRN PRN PRN Reason: Constipation Simethicone (Simethicone 80 Mg Tablet) 80 mg PO PCHS PRN PRN Reason: Indigestion/Stomach pain Sodium Chloride (0.9% Saline Lock 10 Ml Syringe) 5 - 15 ml IV UD PRN PRN Reason: SALINE FLUSH Last Admin: 09/14/20 22:04 Dose: 10 ml Documented by: Medical Necessity - Tobacco Use Smoking Status: Never smoker Assessment/Plan All Active Problems (Last Reviewed 09/05/20 @ 14:37 by Ronit Contreras) Active labor at term (Acute) Transient hypertension of (Acute) 36 weeks gestation of (Acute) Supervision of high risk , antepartum (Acute) At risk for sexually transmitted disease due to partner with genital herpes (Acute) Susceptible to varicella (non-immune), currently (Acute) Marijuana smoker (Acute) (Acute) s/p PPD # 2 1. routine post delivery care 2. breast feeding- support given 3. rh positive 4. rubella immune
[2020-09-15 07:50] VITALS: BP 122/77; PULSE 68; RESP 16; TEMP 36.3
[2020-09-15] MEDS: Famotidine 20 MG Tablet PO (10:44)
[2020-09-18 14:32] LABS: Pathology Specimen OB SEE PATHOLOGY REPORT
--- NOTE | 2020-10-03 16:27 | CASEMGMT ---
Social Work Labor and Delivery Meconium drug screen is negative. No further referrals are indicated for this family. -JUANCARLOS Gastelum, EQUIPMENT MECHANIC SPECIALIST
== END 2020-09-15 11:45 | disposition home or self-care (01) | DRG 807 ==
LOC: WP 21:44 → WPOUT 09-14 10:45
PROVIDERS: Admitting Provider Obstetrics & Gynecology; PCP Family Medicine; Visit Provider Obstetrics & Gynecology
DX: O60.14X0 Preterm labor third trimester with preterm delivery third trimester, not applicable or unspecified (principal); Z37.0 Single live birth; O70.1 Second degree perineal laceration during delivery; Z3A.37 37 weeks gestation of pregnancy
CPT/HCPCS: 59025; 59050; 85025; 86850; 86900; 86901; 87081; 87426; 87653; 88307; 99218; J7120; A4216; G0378; J2405

== ENCOUNTER → 2020-10-24 10:28 | Outpatient (CLI) | payer OTHER, SELFPAY ==
[2020-10-24 10:03] VITALS: BMI 29.2
[2020-10-25 10:16] LABS: HSV 1 IgG < 0.91 index (0.00-0.90); HSV 2 IgG < 0.91 index (0.00-0.90)
== END ==
PROVIDERS: PCP Family Medicine; Referring Provider Obstetrics & Gynecology; Visit Provider Obstetrics & Gynecology
DX: Z91.89 Other specified personal risk factors, not elsewhere classified (principal)
CPT/HCPCS: 36415; 86695; 86696

== ENCOUNTER → 2022-02-19 | Outpatient (CLI) | payer OTHER, SELFPAY ==
[2022-02-19 13:11] LABS: Amphetamine Urine VISTA NEGATIVE (<1000 ng/mL); Barbiturate Urine VISTA NEGATIVE (< 200 ng/mL); Benzodiazepine Urine VISTA NEGATIVE (< 200 ng/mL); Cocaine Urine VISTA NEGATIVE (< 300 ng/mL); Ecstacy Urine VISTA NEGATIVE (< 500 ng/mL); Methadone Urine VISTA NEGATIVE (< 300 ng/mL); PCP Urine VISTA NEGATIVE (< 25 ng/mL); THC Urine VISTA NEGATIVE (< 50 ng/mL); Vista UDS pH Range 6
[2022-02-21 00:07] LABS: Chlamydia By Nucleic Acid AMP Negative (Negative)
[2022-02-21 08:36] LABS: Gonococcus By Nucleic Acid AMP Negative (Negative)
[2022-02-24 17:15] LABS: HPV Reflexed? NOT INDICATED
== END | disposition home or self-care (01) ==
LOC: LABSPEC 12:33
PROVIDERS: PCP Family Medicine; Visit Provider Obstetrics & Gynecology
DX: O09.90 Supervision of high risk pregnancy, unspecified, unspecified trimester (principal)
CPT/HCPCS: 80307; 87086; 87088; 87491; 87591; 88175; G0145

== ENCOUNTER → 2022-03-19 | Outpatient (CLI) | payer OTHER, SELFPAY ==
[2022-03-19 11:01] LABS: Absolute Lymphocyte Count 1.14 X10^3/uL (0.83-4.51); Absolute Neutrophil Count 4.6 X10^3/uL (2.0-7.7); Basophil# 0.01 X10^3/uL; Basophil% 0.2 % (0-1); Eosinophil# 0.03 X10^3/uL; Eosinophils% 0.5 % (0-5); Hematocrit 36.8 % (37-47); Hemoglobin 12.9 g/dL (12.0-15.0); Lymphocyte # 1.14 X10^3/ul (0.83-4.51); Lymphocyte % 18.4 % (19-41); Mean Corp Hgb Conc 35.1 g/dL (32-36); Mean Corpuscular Hgb 29.5 pg (27.0-32.0); Mean Corpuscular Volume 84.2 fL (81-99); Mean Platelet Vol. 10.8 fl (6.2-12.0); Monocyte# 0.36 X10^3/uL; Monocyte% 5.8 % (0-10); NRBC Flagged by Analyzer 0 % (0-5); Neutrophil # 4.64 X10^3/uL (2.7-7.7); Neutrophil % 74.9 % (47-70); Platelet Count 200 K/mm3 (150-450); RBC Distribution Width CV 12.5 % (11.6-14.6); RBC Distribution Width SD 38.5 fl (35.1-43.9); Red Blood Count 4.37 M/mm3 (4.2-5.4); White Blood Count 6.2 K/mm3 (4.4-11.0)
[2022-03-19 11:45] LABS: Glucose Challenge Gest 1H 50g 134 mg/dL (70-140)
[2022-03-19 11:49] LABS: NATERA MAILED SPECIMEN
[2022-03-19 12:29] LABS: HIV - WCH Non-Reactive (Nonreactive); Hepatitis B Surface Antigen Non-Reactive (Nonreactive); Hepatitis C Antibody Non-Reactive (Nonreactive); Rubella IgG Reactive (Nonreactive); Syphilis Antibodies Non-reactive
[2022-03-21 08:26] LABS: HSV 1 IgG < 0.91 index (0.00-0.90); HSV 2 IgG 6.91 index (0.00-0.90); V-Zoster IgG (Immunity) 368 index (Immune >165)
== END | disposition home or self-care (01) ==
LOC: PAVLAB 10:18
PROVIDERS: PCP Family Medicine; Referring Provider Obstetrics & Gynecology; Visit Provider Obstetrics & Gynecology
DX: O99.210 Obesity complicating pregnancy, unspecified trimester (principal); Z20.2 Contact with and (suspected) exposure to infections with a predominantly sexual mode of transmission; Z28.39 Other underimmunization status; Z28.9 Immunization not carried out for unspecified reason
CPT/HCPCS: 36415; 82950; 85025; 86695; 86696; 86703; 86762; 86780; 86787; 86803; 86850; 86900; 86901; 87340

== ENCOUNTER → 2022-07-03 | Outpatient (CLI) | payer OTHER, SELFPAY ==
[2022-07-03 11:34] LABS: Absolute Lymphocyte Count 1.62 X10^3/uL (0.83-4.51); Absolute Neutrophil Count 7.4 X10^3/uL (2.0-7.7); Eosinophil# 0.04 X10^3/uL; Eosinophils% 0.4 % (0-5); Hematocrit 36.7 % (37-47); Hemoglobin 12.6 g/dL (12.0-15.0); Lymphocyte # 1.62 X10^3/ul (0.83-4.51); Lymphocyte % 16.8 % (19-41); Mean Corp Hgb Conc 34.3 g/dL (32-36); Mean Corpuscular Hgb 30.7 pg (27.0-32.0); Mean Corpuscular Volume 89.5 fL (81-99); Mean Platelet Vol. 9.7 fl (6.2-12.0); Monocyte# 0.52 X10^3/uL; Monocyte% 5.4 % (0-10); NRBC Flagged by Analyzer 0 % (0-5); Neutrophil % 76.6 % (47-70); Platelet Count 215 K/mm3 (150-450); RBC Distribution Width CV 13.6 % (11.6-14.6); RBC Distribution Width SD 44.1 fl (35.1-43.9); White Blood Count 9.7 K/mm3 (4.4-11.0)
[2022-07-03 11:48] LABS: Glucose Challenge Gest 1H 50g 135 mg/dL (70-140)
== END | disposition home or self-care (01) ==
LOC: PAVLAB 10:46
PROVIDERS: PCP Family Medicine; Referring Provider Obstetrics & Gynecology; Visit Provider Obstetrics & Gynecology
DX: Z34.90 Encounter for supervision of normal pregnancy, unspecified, unspecified trimester (principal)
CPT/HCPCS: 36415; 82950; 85025

== ENCOUNTER → 2022-07-07 | Outpatient (CLI) | payer OTHER, SELFPAY ==
[2022-07-07 08:14] LABS: Glucose GTT-Gestation. Fasting 90 mg/dL (<105)
[2022-07-07 09:25] LABS: Glucose GTT-Gestational 1 Hr 160 mg/dL (<190)
[2022-07-07 10:33] LABS: Glucose GTT-Gestational 2 Hr 137 mg/dL (<165)
[2022-07-07 12:58] LABS: Glucose GTT-Gestational 3 Hr 121 L (<145)
== END | disposition home or self-care (01) ==
LOC: LAB 07:19
PROVIDERS: PCP Family Medicine; Referring Provider Obstetrics & Gynecology; Visit Provider Obstetrics & Gynecology
DX: Z11.3 Encounter for screening for infections with a predominantly sexual mode of transmission (principal)
CPT/HCPCS: 36415; 82951; 82952

== ENCOUNTER → 2022-08-26 | Outpatient (CLI) | payer OTHER, SELFPAY | END | disposition home or self-care (01) | LOC: LABSPEC 13:49 | PROVIDERS: PCP Family Medicine; Visit Provider Obstetrics & Gynecology | DX: O09.90 Supervision of high risk pregnancy, unspecified, unspecified trimester (principal) | CPT/HCPCS: 87081 ==

== ENCOUNTER 2022-08-28 22:46 | Outpatient (CLI) | payer OTHER, SELFPAY ==
[2022-08-28 23:00] VITALS: BMI 36.3
[2022-08-28 23:05] VITALS: BP 123/76; PULSE 90; TEMP 36.1; O2SAT 96
--- NOTE | 2022-08-28 23:51 | OB.TRI.HP_ITS ---
HPI - General General Date of Admission: 08/28/22 HPI Narrative JEANETTE CORNELL, is a 22 F who presents to L&D ( @ 36 weeks 2 days with contractions. She denies lof, vaginal bleeding, or dec fm. Maternal Data Information YASH Calculator Estimated Delivery Date Method Current WG Current Estimate 09/23/22 LMP (Certain) 38w 0d Other Estimates 09/19/22 Ultrasound #1 38w 4d PFSH PFSH Medical History (Updated 09/09/22 @ 13:[address] Tamika Osei, DO) Anxiety and depression Complete placenta previa nos or without hemorrhage, second trimester Marijuana smoker Routine cultures positive for HSV2 Susceptible to varicella (non-immune), currently Home Medications famotidine 20 mg tablet (Pepcid) 20 mg PO BID #60 tabs 06/13/22 [Rx Last Taken 09/08/22 07:00] valacyclovir 1 gram tablet (Valtrex) 500 mg PO DAILY see provider 08/28/22 [History Last Taken 09/07/22 23:00] Allergy/AdvReac Type Severity Reaction Status Date / Time No Known Allergies Allergy Verified 09/05/22 09:33 Family History Father Hypertension Father Cancer Surgical History History of wisdom tooth extraction, class IV edentulism Social History adopted: No household members: family housing: apartment current occupational status: employed current occupation: [employer] pets and animals: Yes history of recent travel: No sexually active: Yes Smoking Status: Never smoker second hand exposure: Yes alcohol intake: current details: not while substance use type: does not use what type of physical activity do you participate in: none seatbelt use: always do you feel safe at home: Yes additional social history: Jose History 3 Elective abortions Hx Para 1 Spontaneous abortions 1 Hx # Term Pregnancies 1 Ectopic pregnancies Hx # Pregnancies Multiple births # of living children 1 Past Pregnancies Del. Date Name GA/Weeks Outcome Route Bth Weight Gen Labor Lgth Anesthesia Del Locatn Provider FOB Unknown Missed AB- 10/201709/14/20 Hadley 37 live - full term 6lbs 15oz Male 20 hours epidural [facility] A[facility] Artemio Delivery Date: 09/14/20 Last Updated by: Danelle Mcgowan Suspected triple 1; midline perineal laceration 2 degree Visit Details Expected Delivery Route/Plan Labor Preferences- CB/BF classes: [] labor support person: [] labor intervention preferences: [] pain management options preferred: [] cut cord/dad catch: [] : [] PP control planned: [] discussed possible routes of delivery and associated risks: [] special requests: [] Plans Covid status: [] Flu vaccine: [] Tdap vaccine: [] Rhogam: [] LARC form signed: [] Problem list reviewed and updated with the most current plan of care details and appropriate orders placed. Relevant counseling for the gestational age provided. Continue routine care and follow up unless otherwise noted in visit notes/problem list details OB Flowsheet Initial Weight: Not Recorded Date -?-?-?-?-?-?-?-?-?-?-?-?- EGA Weight BP Urine Prot -?-?-?-?-?-?-?-?-?-?-?-?- Glucose FHR FuHt Pres Dilation -?-?-?-?-?-?-?-?-?-?-?-?- Effaced St Visit Note 02/19/22 -?-?-?-?-?-?-?-?-?-?-?-?- 9w 1d 195 lb 2 oz 108/72 -?-?-?-?-?-?-?-?-?-?-?-?- 170 -?-?-?-?-?-?-?-?-?-?-?-?- JV- CRL consiste nt with LMP 03/19/22 -?-?-?-?-?-?-?-?-?-?-?-?- 13w 1d 190 lb 112/72 Negative -?-?-?-?-?-?-?-?-?-?-?-?- Negative 160 -?-?-?-?-?-?-?-?-?-?-?-?- JV- heart tones on us today. CRL appropriate for set GA. Glucola done today. will get NIPT and new ob labs at same time. 04/16/22 -?-?-?-?-?-?-?-?-?-?-?-?- 17w 1d 190 lb 8 oz 110/80 Nega tive -?-?-?-?-?-?-?-?-?-?-?-?- Negative 147 -?-?-?-?-?-?-?-?-?-?-?-?- JV- no lof, vagi nal bleeding or cramping. pt having gender reveal libertarian on thursday! 05/14/22 -?-?-?-?-?-?-?-?-?-?-?-?- 21w 1d 194 lb 88/59 Negative -?-?-?-?-?-?-?-?-?-?-?-?- Negative 150 -?-?-?-?-?-?-?-?-?-?--?-?- JV- no complaint s today. previa again discussed. needs f/u with mfm at 28 weeks. having a girl! 06/13/22 -?-?-?-?-?-?-?-?-?-?-?-?- 25w 3d 200 lb 106/70 Negative -?-?-?-?-?-?-?-?-?-?-?-?- Negative 145 24 -?-?-?-?-?-?-?-?-?-?-?-?- JV- no lof, vagi nal bleeding, or dec fm. has rpt scan for placenta on 07/03. plan for glucola, visit and scan on same day if possible. 07/03/22 -?-?-?-?-?-?-?-?-?-?-?-?- 28w 2d 203 lb 2 oz 116/79 Nega tive -?-?-?-?-?-?-?-?-?-?-?-?- Negative 152 29 -?-?-?-?-?-?-?-?-?-?-?-?- JV- No lof, vagi nal bleeding, or dec fm. glucola today, tdap today, declines flu. going on trip to [place] 07/16/22 -?-?-?-?-?-?-?-?-?-?-?-?- 30w 1d 202 lb 4 oz 110/75 Nega tive -?-?-?-?-?-?-?-?-?-?-?-?- Negative 145 30 -?-?-?-?-?-?-?-?-?-?-?-?- JV- no 3 hr. nor mal placenta no longer low lying. 07/30/22 -?-?-?-?-?-?-?-?-?-?-?-?- 32w 1d 205 lb 6 oz 108/72 Nega tive -?-?-?-?-?-?-?-?-?-?-?-?- Negative 150 32 -?-?-?-?-?-?-?-?-?-?-?-?- JV- no lof, vagi nal bleeding ,or dec fm. plan for 35 weeks valtrex. 08/13/22 -?-?-?-?-?-?-?-?-?-?-?-?- 34w 1d 207 lb 4 oz 111/75 Nega tive -?-?-?-?-?-?-?-?-?-?-?-?- Negative 141 34 -?-?-?-?-?-?-?-?-?-?-?-?- LC-no lof,vb,ctx . good fm. LC-no lof,vb,ctx. good fm.Rx for valtrex sent. 08/26/22 -?-?-?-?-?-?-?-?-?-?-?-?- 36w 0d 212 lb 119/77 Negative -?-?-?-?-?-?-?-?-?-?-?-?- Negative 145 36 -?-?-?-?-?-?-?--?-?-?-?-?- JV- no lof, vagi nal bleeding, or cramping. 09/05/22 -?-?-?-?-?-?-?-?-?-?-?-?- 37w 3d 212 lb 121/77 Negative -?-?-?-?-?-?-?-?-?-?-?-?- Negative 140 37 Cephalic 4 -?-?-?-?-?-?-?-?-?-?-?-?- 60 -2 SM- no vb lof good fm no regualr ctxmembranes swept ROS Constitutional Constitutional: Reports systems reviewed and no addt'l complaints, except as documented Gastrointestinal Gastrointestinal: Denies bloating, constipation, cramping, diarrhea, nausea or vomiting Genitourinary Genitourinary: Reports other Details: Denies vaginal odor, vaginal bleeding, or vaginal discharge ; Denies difficulty urinating or flank pain NST FHR Rate Baby A Baseline: 140 Variability:: Moderate Accelerations:: 15 x 15 Decelerations:: None NST Reactive:: Yes FHR Category:: Category I Assessment & Plan (1) False labor before 37 completed weeks of gestation: PLAN: contractions were noted to be ever 2-5 minutes. pt was monitored for 98 minutes then discharged to home. (2) Abnormal glucose affecting : COMMENT: failed 1 hr GCT. 3 Hr GTT nl (3) Routine cultures positive for HSV2: COMMENT: 35 wk valtrex (4) Obesity affecting : COMMENT: 1hr GTT at [facility] (5) Susceptible to varicella (non-immune), currently : COMMENT: Titer at [facility] (6) Supervision of high risk , antepartum: COMMENT: PRR YASH 09/23/2022 CINDY Butcher BF: Jose (7) Anxiety and depression: COMMENT: no meds currently, previously on Zoloft and Celexa (8) : QUALIFIERS: Weeks of gestation: 37 weeks Qualified Code(s): Z3A.37 - 37 weeks gestation of COMMENT: GBS negative, anatomy nl, repeat views nl, Desires NIPT, declines carrier, ntd screening declined Charges/Coding Multi Select Codes Urinary/Genital Urinary/Genital CPT Codes: 91614-62 non-stress test Interp
[2022-08-29] MEDS: Lactated Ringers 1,000 ML 999 ML IV (00:50)
[2022-08-29 01:04] LABS: Absolute Lymphocyte Count 2.17 X10^3/uL (0.83-4.51); Absolute Neutrophil Count 8.2 X10^3/uL (2.0-7.7); Basophil# 0.02 X10^3/uL; Basophil% 0.2 % (0-1); Eosinophil# 0.03 X10^3/uL; Eosinophils% 0.3 % (0-5); Hematocrit 35.5 % (37-47); Hemoglobin 12.2 g/dL (12.0-15.0); Lymphocyte # 2.17 X10^3/ul (0.83-4.51); Mean Corp Hgb Conc 34.4 g/dL (32-36); Mean Corpuscular Hgb 30.2 pg (27.0-32.0); Mean Corpuscular Volume 87.9 fL (81-99); Mean Platelet Vol. 9.7 fl (6.2-12.0); Monocyte# 0.86 X10^3/uL; Monocyte% 7.5 % (0-10); NRBC Flagged by Analyzer 0 % (0-5); Neutrophil # 8.23 X10^3/uL (2.7-7.7); Neutrophil % 72.2 % (47-70); Platelet Count 190 K/mm3 (150-450); RBC Distribution Width CV 13.2 % (11.6-14.6); RBC Distribution Width SD 42.1 fl (35.1-43.9); Red Blood Count 4.04 M/mm3 (4.2-5.4); White Blood Count 11.4 K/mm3 (4.4-11.0)
[2022-08-29 02:37] VITALS: TEMP 36.1
[2022-08-29 02:38] VITALS: BP 110/71; PULSE 69
== END 2022-08-29 03:41 | disposition home or self-care (01) ==
LOC: WPOUT 22:52 → WP 22:53
PROVIDERS: PCP Family Medicine; Visit Provider Obstetrics & Gynecology
DX: O99.213 Obesity complicating pregnancy, third trimester (principal); O47.1 False labor at or after 37 completed weeks of gestation; Z3A.38 38 weeks gestation of pregnancy
CPT/HCPCS: 96360; 36415; 59025; 59050; 85025; 86850; 86900; 86901; 99218; J7120; G0378

== ENCOUNTER 2022-09-08 10:00 | Outpatient (CLI) | payer OTHER, SELFPAY ==
[2022-09-08 10:11] VITALS: BMI 37.5
[2022-09-08 10:15] VITALS: BP 122/82; PULSE 96; TEMP 36.5; O2SAT 98
[2022-09-08 10:48] LABS: ROM Internal Control Test YES-OK TO RESULT pt. (Internal QC); ROM Patient Test Negative (Negative)
--- NOTE | 2022-09-08 21:14 | OB.TRI.HP_ITS ---
HPI - General HPI Narrative JEANETTE CORNELL, is a 22 F who presents Maternal Data Information YASH Calculator Estimated Delivery Date Method Current WG Current Estimate 09/23/22 LMP (Certain) 37w 6d Other Estimates 09/19/22 Ultrasound #1 38w 3d PFSH PFS Medical History (Updated 09/05/22 @ 10:[address] Analisa Arteaga MD) Anxiety and depression Complete placenta previa nos or without hemorrhage, second trimester Marijuana smoker Routine cultures positive for HSV2 Susceptible to varicella (non-immune), currently Home Medications famotidine 20 mg tablet (Pepcid) 20 mg PO BID #60 tabs 06/13/22 [Rx Last Taken 09/08/22 07:00] valacyclovir 1 gram tablet (Valtrex) 500 mg PO DAILY see provider 08/28/22 [History Last Taken 09/07/22 23:00] Allergy/AdvReac Type Severity Reaction Status Date / Time No Known Allergies Allergy Verified 09/05/22 09:33 Family History Father Hypertension Father Cancer Surgical History History of wisdom tooth extraction, class IV edentulism Social History adopted: No household members: family housing: apartment current occupational status: employed current occupation: [employer] pets and animals: Yes history of recent travel: No sexually active: Yes Smoking Status: Never smoker second hand exposure: Yes alcohol intake: current details: not while substance use type: does not use what type of physical activity do you participate in: none seatbelt use: always do you feel safe at home: Yes additional social history: Jose History 3 Elective abortions Hx Para 1 Spontaneous abortions 1 Hx # Term Pregnancies 1 Ectopic pregnancies Hx # Pregnancies Multiple births # of living children 1 Past Pregnancies Del. Date Name GA/Weeks Outcome Route Bth Weight Infant Gen Labor Lgth Anesthesia Del Locatn Provider FOB Unknown Missed AB- 10/201709/14/20 Hadley 37 live - full term 6lbs 15oz Male 20 hours epidural [facility] Artemio Delivery Date: 09/14/20 Last Updated by: Danelle Mcgowan Suspected triple 1; midline perineal laceration 2 degree Visit Details Expected Delivery Route/Plan Labor Preferences- CB/BF classes: [] labor support person: [] labor intervention preferences: [] pain management options preferred: [] cut cord/dad catch: [] : [] PP control planned: [] discussed possible routes of delivery and associated risks: [] special requests: [] Plans Covid status: [] Flu vaccine: [] Tdap vaccine: [] Rhogam: [] LARC form signed: [] Problem list reviewed and updated with the most current plan of care details and appropriate orders placed. Relevant counseling for the gestational age provided. Continue routine care and follow up unless otherwise noted in visit notes/problem list details OB Flowsheet Initial Weight: Not Recorded Date -?-?-?-?-?-?-?-?-?-?-?-?- EGA Weight BP Urine Prot -?-?-?-?-?-?-?-?-?-?-?-?- Glucose FHR FuHt Pres Dilation -?-?-?-?-?-?-?-?-?-?-?-?- Effaced St Visit Note 02/19/22 -?-?-?-?-?-?-?-?-?-?-?-?- 9w 1d 195 lb 2 oz 108/72 -?-?-?-?-?-?-?-?-?-?-?-?- 170 -?-?-?-?-?-?-?-?-?-?-?-?- JV- CRL consiste nt with LMP 03/19/22 -?-?-?-?-?-?-?-?-?-?-?-?- 13w 1d 190 lb 112/72 Negative -?-?-?-?-?-?-?-?-?-?-?-?- Negative 160 -?-?-?-?-?-?-?-?-?-?-?-?- JV- heart tones on us today. CRL appropriate for set GA. Glucola done today. will get NIPT and new ob labs at same time. 04/16/22 -?-?-?-?-?-?-?-?-?-?-?-?- 17w 1d 190 lb 8 oz 110/80 Nega tive -?-?-?-?-?-?-?-?-?-?-?-?- Negative 147 -?-?-?-?-?-?-?-?-?-?-?-?- JV- no lof, vagi nal bleeding or cramping. pt having gender reveal libertarian on thursday! 05/14/22 -?-?-?-?-?-?-?-?-?-?-?-?- 21w 1d 194 lb 88/59 Negative -?-?-?-?-?-?-?-?-?-?-?-?- Negative 150 -?-?-?-?-?-?-?-?-?-?-?-?- JV- no complaint s today. previa again discussed. needs f/u with mfm at 28 weeks. having a girl! 06/13/22 -?-?-?-?-?-?-?-?-?-?-?-?- 25w 3d 200 lb 106/70 Negative -?-?-?-?-?-?-?-?-?-?-?-?- Negative 145 24 -?-?-?-?-?-?-?-?-?-?-?-?- JV- no lof, vagi nal bleeding, or dec fm. has rpt scan for placenta on 07/03. plan for glucola, visit and scan on same day if possible. 07/03/22 -?-?-?-?-?-?-?-?-?-?-?-?- 28w 2d 203 lb 2 oz 116/79 Nega tive -?-?-?-?-?-?-?-?-?--?-?-?- Negative 152 29 -?-?-?-?-?-?-?-?-?-?-?-?- JV- No lof, vagi nal bleeding, or dec fm. glucola today, tdap today, declines flu. going on trip to [place] 07/16/22 -?-?-?-?-?-?-?-?-?-?-?-?- 30w 1d 202 lb 4 oz 110/75 Nega tive -?-?-?-?-?-?-?-?-?-?-?-?- Negative 145 30 -?-?-?-?-?-?-?-?-?-?-?-?- JV- no 3 hr. nor mal placenta no longer low lying. 07/30/22 -?-?-?-?-?-?-?-?-?-?-?-?- 32w 1d 205 lb 6 oz 108/72 Nega tive -?-?-?-?-?-?-?-?-?-?-?-?- Negative 150 32 -?-?-?-?-?-?-?-?-?-?-?-?- JV- no lof, vagi nal bleeding ,or dec fm. plan for 35 weeks valtrex. 08/13/22 -?-?-?-?-?-?-?-?-?-?-?-?- 34w 1d 207 lb 4 oz 111/75 Nega tive -?-?-?-?-?-?-?-?-?-?-?-?- Negative 141 34 -?-?-?-?-?-?-?-?-?-?-?-?- LC-no lof,vb,ctx . good fm. LC-no lof,vb,ctx. good fm.Rx for valtrex sent. 08/26/22 -?-?-?-?-?-?-?-?-?-?-?-?- 36w 0d 212 lb 119/77 Negative -?-?-?-?-?-?-?-?-?-?-?-?- Negative 145 36 -?-?-?-?-?-?-?-?-?-?-?-?- JV- no lof, vagi nal bleeding, or cramping. 09/05/22 -?-?-?-?-?-?-?-?-?-?-?-?- 37w 3d 212 lb 121/77 Negative -?-?-?-?-?-?-?--?-?-?-?-?- Negative 140 37 Cephalic 4 -?-?-?-?-?-?-?-?-?-?-?-?- 60 -2 SM- no vb lof good fm no regualr ctxmembranes swept NST FHR Rate Baby A Baseline: 130 Variability:: Moderate Accelerations:: 15 x 15 Decelerations:: None NST Reactive:: Yes FHR Category:: Category I Uterine Activity:: irregular Assessment & Plan (1) Obesity affecting : COMMENT: 1hr GTT at [facility] (2) Supervision of high risk , antepartum: COMMENT: PRR YASH 09/23/2022 CINDY Butcher BF: Jose (3) : QUALIFIERS: Weeks of gestation: 37 weeks Qualified Code(s): Z3A. 37 - 37 weeks gestation of COMMENT: GBS negative, anatomy nl, repeat views nl, Desires NIPT, declines carrier, ntd screening declined PLAN: Plan Patient presents for triage evaluation secondary to r/o ROM with ctx at at 37+6 FHT: Moderate variability reactive no decelerations category I tracing [place]: irreg Contractions Assessment and plan: ROM negative. Reactive NST, reassuring maternal and status patient discharged to home to follow-up in office during routine visit. See problem list details for additional plan information. Charges/Coding Multi Select Codes Urinary/Genital Urinary/Genital CPT Codes: 21755-29 non-stress test Interp
== END 2022-09-08 11:37 | disposition home or self-care (01) ==
LOC: WPOUT 10:10 → WP 10:10
PROVIDERS: PCP Family Medicine; Visit Provider Registered Nurse
DX: O47.03 False labor before 37 completed weeks of gestation, third trimester (principal); O99.213 Obesity complicating pregnancy, third trimester; O99.343 Other mental disorders complicating pregnancy, third trimester; F41.9 Anxiety disorder, unspecified; F32.9 Major depressive disorder, single episode, unspecified; Z3A.37 37 weeks gestation of pregnancy
CPT/HCPCS: 84112

== ENCOUNTER 2022-09-14 00:45 | Inpatient (IN) | payer OTHER, SELFPAY ==
[2022-09-14] VITALS (13 sets, daily range): BP systolic 107–128; BP diastolic 60–85; PULSE 62–100; RESP 16–18; TEMP 35.4–36.6; O2SAT 99; BMI 37.7
--- NOTE | 2022-09-14 01:38 | HP.PCM.OB_ITS ---
HPI - General General Date of Admission: 09/14/22 HPI Narrative JEANETTE CORNELL, is a 22 F who presents IAL regular ctx, has had prodromal labor for a day and then presented 5-7 cm and delivered within an hour. no vb lof ROM with vaginal exam. Maternal Data Information YASH Calculator Estimated Delivery Date Method Current WG Current Estimate 09/23/22 LMP (Certain) 38w 5d Other Estimates 09/19/22 Ultrasound #1 39w 2d PFSH PFSH Medical History (Updated 09/14/22 @ 01:[address] Analisa Arteaga MD) Anxiety and depression Complete placenta previa nos or without hemorrhage, second trimester Marijuana smoker Routine cultures positive for HSV2 Susceptible to varicella (non-immune), currently Home Medications famotidine 20 mg tablet (Pepcid) 20 mg PO BID #60 tabs 06/13/22 [Rx Last Taken 09/08/22 07:00] valacyclovir 1 gram tablet (Valtrex) 500 mg PO DAILY see provider 08/28/22 [History Last Taken 09/07/22 23:00] Allergy/AdvReac Type Severity Reaction Status Date / Time No Known Allergies Allergy Verified 09/14/22 00:44 Family History Father Hypertension Father Cancer Surgical History History of wisdom tooth extraction, class IV edentulism Social History adopted: No household members: family housing: apartment current occupational status: employed current occupation: [employer] pets and animals: Yes history of recent travel: No sexually active: Yes Smoking Status: Never smoker second hand exposure: Yes alcohol intake: current details: not while substance use type: does not use what type of physical activity do you participate in: none seatbelt use: always do you feel safe at home: Yes additional social history: Jose History 3 Elective abortions Hx Para 1 Spontaneous abortions 1 Hx # Term Pregnancies 1 Ectopic pregnancies Hx # Pregnancies Multiple births # of living children 1 Past Pregnancies Del. Date Name GA/Weeks Outcome Route Bth Weight Infant Gen Labor Lgth Anesthesia Del Locatn Provider FOB Unknown Missed AB- 10/201709/14/20 [place] 37 live - full term 6lbs 15oz Male 20 hours epidural [facility] A[facility]KSE[facility] Artemio Delivery Date: 09/14/20 Last Updated by: Danelle Mcgowan Suspected triple 1; midline perineal laceration 2 degree Visit Details Expected Delivery Route/Plan Labor Preferences- CB/BF classes: [] labor support person: [] labor intervention preferences: [] pain management options preferred: [] cut cord/dad catch: [] : [] PP control planned: [] discussed possible routes of delivery and associated risks: [] special requests: [] Plans Covid status: [] Flu vaccine: [] Tdap vaccine: [] Rhogam: [] LARC form signed: [] Problem list reviewed and updated with the most current plan of care details and appropriate orders placed. Relevant counseling for the gestational age provided. Continue routine care and follow up unless otherwise noted in visit notes/problem list details OB Flowsheet Initial Weight: Not Recorded Date -?-?-?-?-?-?-?-?-?-?-?-?- EGA Weight BP Urine Prot -?-?-?-?-?-?-?-?-?-?-?-?- Glucose FHR FuHt Pres Dilation -?-?-?-?-?-?-?-?-?-?-?-?- Effaced St Visit Note 02/19/22 -?-?-?-?-?-?-?-?-?-?-?-?- 9w 1d 195 lb 2 oz 108/72 -?-?-?-?-?-?-?-?-?-?-?-?- 170 -?-?-?-?-?-?-?-?-?-?-?-?- JV- CRL consiste nt with LMP 03/19/22 -?-?-?-?-?-?-?-?-?-?-?-?- 13w 1d 190 lb 112/72 Negative -?-?-?-?-?-?-?-?-?-?-?-?- Negative 160 -?-?--?-?-?-?-?-?-?-?-?-?- JV- heart tones on us today. CRL appropriate for set GA. Glucola done today. will get NIPT and new ob labs at same time. 04/16/22 -?-?-?-?-?-?-?-?-?-?-?-?- 17w 1d 190 lb 8 oz 110/80 Nega tive -?-?-?-?-?-?-?-?-?-?-?-?- Negative 147 -?-?-?-?-?-?-?-?-?-?-?-?- JV- no lof, vagi nal bleeding or cramping. pt having gender reveal alliance party on thursday! 05/14/22 -?-?-?-?-?-?-?-?-?-?-?-?- 21w 1d 194 lb 88/59 Negative -?-?-?-?-?-?-?-?-?-?-?-?- Negative 150 -?-?-?-?-?-?-?-?-?-?-?-?- JV- no complaint s today. previa again discussed. needs f/u with mfm at 28 weeks. having a girl! 06/13/22 -?-?-?-?-?-?-?-?-?-?-?-?- 25w 3d 200 lb 106/70 Negative -?-?-?-?-?-?-?-?-?-?-?-?- Negative 145 24 -?-?-?-?-?-?-?-?-?-?-?-?- JV- no lof, vagi nal bleeding, or dec fm. has rpt scan for placenta on 07/03. plan for glucola, visit and scan on same day if possible. 07/03/22 -?-?-?-?-?-?-?-?-?-?-?-?- 28w 2d 203 lb 2 oz 116/79 Nega tive -?-?-?-?-?-?-?-?-?-?-?-?- Negative 152 29 -?-?-?-?-?-?-?-?-?-?-?-?- JV- No lof, vagi nal bleeding, or dec fm. glucola today, tdap today, declines flu. going on trip to [place] 07/16/22 -?-?-?-?-?-?-?-?-?-?-?-?- 30w 1d 202 lb 4 oz 110/75 Nega tive -?-?-?-?-?-?-?-?-?-?-?-?- Negative 145 30 -?-?-?-?-?-?-?-?-?--?-?-?- JV- no 3 hr. nor mal placenta no longer low lying. 07/30/22 -?-?-?-?-?-?-?-?-?-?-?-?- 32w 1d 205 lb 6 oz 108/72 Nega tive -?-?-?-?-?-?-?-?-?-?-?-?- Negative 150 32 -?-?-?-?-?-?-?-?-?-?-?-?- JV- no lof, vagi nal bleeding ,or dec fm. plan for 35 weeks valtrex. 08/13/22 -?-?-?-?-?-?-?-?-?-?-?-?- 34w 1d 207 lb 4 oz 111/75 Nega tive -?-?-?-?-?-?-?-?-?-?-?-?- Negative 141 34 -?-?-?-?-?-?-?-?-?-?-?-?- LC-no lof,vb,ctx . good fm. LC-no lof,vb,ctx. good fm.Rx for valtrex sent. 08/26/22 -?-?-?-?-?-?-?-?-?-?-?-?- 36w 0d 212 lb 119/77 Negative -?-?-?-?-?-?-?-?-?-?-?-?- Negative 145 36 -?-?-?-?-?-?-?-?-?-?-?-?- JV- no lof, vagi nal bleeding, or cramping. 09/05/22 -?-?-?-?-?-?-?-?-?-?-?-?- 37w 3d 212 lb 121/77 Negative -?-?-?-?-?-?-?-?-?-?-?-?- Negative 140 37 Cephalic 4 -?-?-?-?-?-?-?-?-?-?-?-?- 60 -2 SM- no vb lof good fm no regualr ctxmembranes swept 09/10/22 -?-?-?-?-?-?-?-?-?-?-?-?- 38w 1d 215 lb 6 oz 118/78 Nega tive -?-?-?-?-?-?-?-?-?-?-?-?- Negative 140 38 Cephalic 4 -?-?-?-?-?-?-?-?-?-?-?-?- 60 -2 LC-no stea dy ctx. no vb/lof. good fm.ready! LC-no steady ctx. no vb/lof. good fm.ready!membrane swept today. 09/14/22 -?-?-?-?-?-?-?-?-?-?-?-?- 38w 5d 213 lb 126/85 126/81 122/61 -?-?-?-?-?-?-?-?-?-?-?-?- -?-?-?-?-?-?-?-?-?-?-?-?- NST FHR Rate Baby A Baseline: 140 Variability:: Moderate Accelerations:: 15 x 15 Decelerations:: None NST Reactive:: Yes FHR Category:: Category I Uterine Activity:: q3-5 ROS Constitutional Constitutional: Reports systems reviewed and no addt'l complaints, except as documented ENT HEENT: Reports systems reviewed and no addt'l complaints, except as documented Cardiovascular Cardiovascular: Reports systems reviewed and no addt'l complaints, except as documented Respiratory/Chest Respiratory/Chest: Reports systems reviewed and no addt'l complaints, except as documented Gastrointestinal Gastrointestinal: Reports systems reviewed and no addt'l complaints, except as documented and nausea; Denies abdominal pain Genitourinary Genitourinary: Reports systems reviewed and no addt'l complaints, except as documented, contractions Details: present and frequency (regular ) and movement Details: present Musculoskeletal Musculoskeletal: Reports systems reviewed and no addt'l complaints, except as documented Integumentary Integumentary: Reports as per HPI Neurologic Neurologic: Reports systems reviewed and no addt'l complaints, except as documented Endocrine Endocrinology: Reports systems reviewed and no addt'l complaints, except as documented Vital Signs Vital Signs Vital Signs: 09/14/22 00:38 09/14/22 00:38 09/14/22 00:38 Temperature 96.4 F L Pulse Rate 88 Blood Pressure 126/85 H BP Systolic 126 BP Diastolic 85 09/14/22 01:21 09/14/22 01:21 09/14/22 01:21 Temperature 95.7 F L Pulse Rate 100 Blood Pressure 126/81 H BP Systolic 126 BP Diastolic 81 09/14/22 01:37 09/14/22 01:37 Temperature Pulse Rate 88 Blood Pressure 122/61 H BP Systolic 122 BP Diastolic 61 Weight Weight: 213 lb Body Mass Index (BMI) 37.7 Physical Exam Const alert, oriented x3 and healthy appearing Constitutional Narrative: uncomfortable with contractions HEENT normocephalic and moist oral mucous membranes Head and Scalp: atraumatic Neck full ROM, no lymphadenopathy, supple and thyroid normal General: trachea midline Thyroid: thyroid normal Lymph Lymphatic: no lymphadenopathy noted Chest inspection of chest normal Resp normal respiratory effort Cardio regular rate GI normal to inspection, nondistended, normoactive bowel sounds, soft to palpation and non-tender Inspection: gravid external exam normal Bimanual Exam - Vag & Uterus: uterus non-tender Manual OB Exam: estimated gestational size appropriate, presentation cephalic, dilated, effaced and station Extremity normal to inspection General Extremity: Negative for edema Skin no rashes or lesions noted Neuro deep tendon reflexes 2+ bilaterally Motor Exam: strength 5/5 throughout and clonus absent Psych mental status grossly normal Labs Labs Labs: Blood Type A POSITIVE Antibody Screen NEGATIVE Hct 35.5 % (37-47) L Hgb 12.2 g/dL (12.0-15.0) Syphilis Total Ab Non-reactive VZV IgG Antibody 368 index (Immune >165) Rubella IgG Antibody Reactive (Nonreactive) Hep Bs Antigen Non-Reactive (Nonreactive) Chlamydia DNA (ANTONINO) Negative (Negative) Neisseria gonorrhoeae DNA (ANTONINO) Negative (Negative) HIV 1&2 Antibody Non-Reactive (Nonreactive) Glucose 1 Hr 50 gm 135 mg/dL (70-140) Group B Strep DNA Negative (Negative) Rhogam given: No Assessment & Plan (1) Abnormal glucose affecting : COMMENT: failed 1 hr GCT. 3 Hr GTT nl (2) Routine cultures positive for HSV2: COMMENT: 35 wk valtrex (3) Obesity affecting : COMMENT: 1hr GTT at [facility] (4) Susceptible to varicella (non-immune), currently : COMMENT: Titer at [facility] (5) Supervision of high risk , antepartum: COMMENT: PRR YASH 09/23/2022 CINDY Butcher BF: Jose (6) Anxiety and depression: COMMENT: no meds currently, previously on Zoloft and Celexa (7) Vaginal delivery: COMMENT: SM girl walsh 38 IAL PLAN: Plan Patient presents IAL precipitous delivery . Pain management: none. GBS neg. Management of any complications: none I have reviewed the PFSH and made any clinically relevant updates.
--- NOTE | 2022-09-14 01:44 | OP.PCM_ITS ---
Assessment & Plan (1) Vaginal delivery: COMMENT: SM girl walsh 38 IAL Maternal Data Information YASH Calculator Estimated Delivery Date Method Current WG Current Estimate 09/23/22 LMP (Certain) 38w 5d Other Estimates 09/19/22 Ultrasound #1 39w 2d Vaginal Delivery Operative Information Date of Procedure: 09/14/22 Pre-Operative Diagnosis: IAL Post-Operative Diagnosis: same Surgery / Procedure Performed: Spontaneous Vaginal Delivery Type of Anesthesia: Epidural Special Medications: none Estimated Blood Loss: 100 Fluids Replaced: crystalloid Findings Description of Procedure: Patient began pushing and delivered the head in the PAUL presentation. The head was delivered atraumatically. The anterior and posterior shoulders delivered without complication followed by the rest of the infant and the infant was placed on the maternal abdomen. Delayed cord clamping was employed for approximately 60 seconds. Cord was clamped and cut and gentle traction was applied to the cord and the placenta delivered spontaneously immediately following it was noted to be intact with three-vessel cord. The perineum and vagina were inspected and noted to have no laceration. EBL was 100 cc. Patient and infant tolerated delivery well. Presentation: PAUL Amniotic Membrane Rupture Type: Spontaneous Amniotic Fluid Description: Clear Placental Delivery Description: Spontaneous Placenta Disposition: [facility] Cord Vessel Description: 3 Vessels Cord Entanglement: None A Gender: Female Delayed Cord Clamping: Yes Post Vaginal Delivery Episiotomy Description: None Laceration: None Complication Complications: None Procedures Urinary/Genital 52xxx-59xxx: 14449 Vaginal Delivery [facility]
--- NOTE | 2022-09-14 01:46 | DCINST_ITS ---
Discharge Instructions Diet Discharge Diet: No restrictions Activity Discharge Activity: Return to Normal Activity, May Drive, May Shower and May Take a Tub Bath (in 4 weeks) May resume sexual activity in: 6-8 weeks (after seen by OB provider) Weight Bearing Status: Full weight bearing Lifting Restrictions: none Dressing / Incision Call your doctor if you observe: Fever of 101 or Higher, Inability to urinate, Using more than 1 pad per hour (for more than 2 hours in a row or more), Shortness of breath, Dizziness, Chest pain and - (headache not controlled with tylenol, change in vision) Follow Up Care When: in 6 weeks for visit, call the office to make the appointment. If you had elevated blood pressures call the office to be seen within 1 week. Test Results: Test results from this visit will be discussed in further detail at your follow- up appointment, if applicable. Discharge Plan Admission Admit Date/Time: 09/14/22 00:45 Attending Provider: Analisa Arteaga Primary Care Provider: Verito Titus Discharge Orders/Prescriptions Prescriptions: No Action famotidine [Pepcid] 20 mg tablet 20 mg PO BID Qty: 60 6RF valacyclovir [Valtrex] 1 gram Tablet 500 mg PO DAILY Referrals / Follow Up: Verito Titus MD [Primary Care Provider] - Disposition Disposition (needs filled in before D/C Order can be placed): Home, Self Care
[2022-09-14] MEDS: Acetaminophen 500 MG Tablet 1000 MG PO ×3 (02:37→18:11)
[2022-09-14] MEDS: Naproxen 500 MG Tablet PO ×2 (07:51→16:15)
[2022-09-15] MEDS: Acetaminophen 500 MG Tablet 1000 MG PO ×2 (00:16→06:20)
[2022-09-15] MEDS: Naproxen 500 MG Tablet PO ×2 (00:16→08:37)
[2022-09-15 01:40] VITALS: BP 115/81; PULSE 98; RESP 16; TEMP 36.3
[2022-09-15 08:30] VITALS: BP 113/79; PULSE 75; RESP 16; TEMP 35.8; O2SAT 98
--- NOTE | 2022-09-15 08:35 | PCM.PN.OB ---
Subjective Subjective Patient doing well without complaints. Tolerating PO. Ambulating and voiding without difficulty. Feeding well. Denies chest pain, shortness of breath, calf pain/swelling, fevers, chills, lightheadedness. Objective Data Objective Data Vital Signs: Vital Signs Temp Pulse Resp BP Pulse Ox O2 Del Method 97.4 F L 98 16 115/81 H 99 Room Air 09/15/22 01:40 09/15/22 01:40 09/15/22 01:40 09/15/22 01:40 09/14/22 08:00 09/14/22 15:58 Oxygen Delivery Method Room Air Weight: 213 lb Body Mass Index (BMI) 37.7 Intake & Output: Intake and Output for Last 24 Hours 09/13/22 09/14/22 09/15/22 23:59 23:59 23:59 Output Total 400 / 400 Balance -400 / -400 Lab / Micro Data Attestation: I reviewed the patient's lab results. ROS Constitutional Constitutional: Reports systems reviewed and no addt'l complaints, except as documented Respiratory/Chest Respiratory/Chest: Reports as per HPI Gastrointestinal Gastrointestinal: Reports as per HPI Genitourinary Genitourinary: Reports as per HPI Musculoskeletal Musculoskeletal: Reports as per HPI Integumentary Integumentary: Reports as per HPI Neurologic Neurologic: Reports as per HPI Physical Exam Narrative pt found laying in bed comfortable. NAD. fundus firm 1 below U,small amount of lochia rubra no clots. no edema noted. no s/sx of DVT to LE. Assessment & Plan (1) Vaginal delivery: COMMENT: SM girl walsh 38 IAL PLAN: Plan s/p PPD # 2 1. routine post delivery care 2. breast feeding- support given 3. rh positive 4. rubella immune 5. d/c home today
== END 2022-09-15 11:45 | disposition home or self-care (01) | DRG 807 ==
LOC: WPOUT 00:45 → WP 00:45
PROVIDERS: Admitting Provider Obstetrics & Gynecology; PCP Family Medicine; Visit Provider Obstetrics & Gynecology
DX: O62.3 Precipitate labor (principal); Z37.0 Single live birth; O99.344 Other mental disorders complicating childbirth; F32.9 Major depressive disorder, single episode, unspecified; F41.9 Anxiety disorder, unspecified; O99.214 Obesity complicating childbirth; Z3A.38 38 weeks gestation of pregnancy
CPT/HCPCS: 59025; 59050; 99218; G0378

== ENCOUNTER → 2023-02-25 | Outpatient (CLI) | payer OTHER, SELFPAY ==
[2023-02-25 12:21] LABS: hCG Titer Quant., Serum 70 mIU/mL (1-3)
== END | disposition home or self-care (01) ==
PROVIDERS: PCP Family Medicine; Referring Provider Obstetrics & Gynecology; Visit Provider Obstetrics & Gynecology
DX: N91.2 Amenorrhea, unspecified (principal)
CPT/HCPCS: 36415; 84702

== ENCOUNTER → 2023-02-27 | Outpatient (CLI) | payer OTHER, SELFPAY ==
[2023-02-27 15:14] LABS: hCG Titer Quant., Serum 195 mIU/mL (1-3)
== END | disposition home or self-care (01) ==
LOC: LAB 13:54
PROVIDERS: PCP Family Medicine; Referring Provider Obstetrics & Gynecology; Visit Provider Obstetrics & Gynecology
DX: N91.2 Amenorrhea, unspecified (principal)
CPT/HCPCS: 36415; 84702

== ENCOUNTER → 2023-04-01 | Outpatient (CLI) | payer OTHER, SELFPAY ==
[2023-04-03 00:06] LABS: Chlamydia By Nucleic Acid AMP Negative (Negative); Gonococcus By Nucleic Acid AMP Negative (Negative)
== END | disposition home or self-care (01) ==
LOC: LABSPEC 12:02
PROVIDERS: PCP Family Medicine; Referring Provider Obstetrics & Gynecology; Visit Provider Obstetrics & Gynecology
DX: Z34.90 Encounter for supervision of normal pregnancy, unspecified, unspecified trimester (principal); Z3A.00 Weeks of gestation of pregnancy not specified
CPT/HCPCS: 87086; 87088; 87491; 87591

== ENCOUNTER → 2023-04-29 | Outpatient (CLI) | payer OTHER, SELFPAY ==
[2023-04-29 12:51] LABS: Absolute Lymphocyte Count 1.65 X10^3/uL (0.83-4.51); Absolute Neutrophil Count 5.8 X10^3/uL (2.0-7.7); Basophil# 0.01 X10^3/uL; Basophil% 0.1 % (0-1); Eosinophil# 0.04 X10^3/uL; Eosinophils% 0.5 % (0-5); Hematocrit 39.8 % (37-47); Hemoglobin 13.3 g/dL (12.0-15.0); Lymphocyte # 1.65 X10^3/ul (0.83-4.51); Lymphocyte % 20.8 % (19-41); Mean Corp Hgb Conc 33.4 g/dL (32-36); Mean Corpuscular Hgb 28.6 pg (27.0-32.0); Mean Corpuscular Volume 85.6 fL (81-99); Mean Platelet Vol. 10.7 fl (6.2-12.0); Monocyte# 0.42 X10^3/uL; Monocyte% 5.3 % (0-10); NRBC Flagged by Analyzer 0 % (0-5); Neutrophil # 5.79 X10^3/uL (2.7-7.7); Neutrophil % 72.9 % (47-70); Platelet Count 216 K/mm3 (150-450); RBC Distribution Width CV 13.2 % (11.6-14.6); RBC Distribution Width SD 40.5 fl (35.1-43.9); Red Blood Count 4.65 M/mm3 (4.2-5.4); White Blood Count 7.9 K/mm3 (4.4-11.0)
[2023-04-29 13:08] LABS: Glucose Challenge Gest 1H 50g 131 mg/dL (70-140)
[2023-04-29 13:17] LABS: NATERA MAILED SPECIMEN
[2023-04-29 13:51] LABS: HIV - WCH Non-Reactive (Nonreactive); Hepatitis B Surface Antigen Non-Reactive (Nonreactive); Hepatitis C Antibody Non-Reactive (Nonreactive); Rubella IgG Reactive (Nonreactive); Syphilis Antibodies Non-reactive
== END | disposition home or self-care (01) ==
LOC: LAB 12:13
PROVIDERS: PCP Family Medicine; Referring Provider Obstetrics & Gynecology; Visit Provider Obstetrics & Gynecology
DX: Z34.81 Encounter for supervision of other normal pregnancy, first trimester (principal); Z3A.00 Weeks of gestation of pregnancy not specified
CPT/HCPCS: 36415; 82950; 85025; 86703; 86762; 86780; 86803; 86850; 86900; 86901; 87340

== ENCOUNTER → 2023-08-13 | Outpatient (CLI) | payer OTHER, SELFPAY ==
[2023-08-13 11:09] LABS: Absolute Lymphocyte Count 1.98 X10^3/uL (0.83-4.51); Absolute Neutrophil Count 6.3 X10^3/uL (2.0-7.7); Basophil# 0.01 X10^3/uL; Basophil% 0.1 % (0-1); Eosinophil# 0.06 X10^3/uL; Eosinophils% 0.7 % (0-5); Hematocrit 37.1 % (37-47); Hemoglobin 12.2 g/dL (12.0-15.0); Lymphocyte # 1.98 X10^3/ul (0.83-4.51); Lymphocyte % 22.2 % (19-41); Mean Corp Hgb Conc 32.9 g/dL (32-36); Mean Corpuscular Hgb 29.8 pg (27.0-32.0); Mean Corpuscular Volume 90.7 fL (81-99); Mean Platelet Vol. 10.2 fl (6.2-12.0); Monocyte# 0.49 X10^3/uL; Monocyte% 5.5 % (0-10); NRBC Flagged by Analyzer 0 % (0-5); Neutrophil # 6.33 X10^3/uL (2.7-7.7); Neutrophil % 71.1 % (47-70); Platelet Count 185 K/mm3 (150-450); RBC Distribution Width CV 13.2 % (11.6-14.6); RBC Distribution Width SD 43.3 fl (35.1-43.9); Red Blood Count 4.09 M/mm3 (4.2-5.4); White Blood Count 8.9 K/mm3 (4.4-11.0)
[2023-08-13 11:29] LABS: Glucose Challenge Gest 1H 50g 170 mg/dL (70-140)
[2023-08-13 11:59] LABS: HIV - WCH Non-Reactive (Nonreactive); Syphilis Antibodies Non-reactive
== END | disposition home or self-care (01) ==
LOC: PAVLAB 10:36 → LAB 10:38
PROVIDERS: PCP Family Medicine; Referring Provider Advanced Practice Midwife; Visit Provider Advanced Practice Midwife
DX: O09.90 Supervision of high risk pregnancy, unspecified, unspecified trimester (principal); Z3A.00 Weeks of gestation of pregnancy not specified
CPT/HCPCS: 36415; 82950; 85025; 86703; 86780

== ENCOUNTER → 2023-08-27 | Outpatient (CLI) | payer OTHER, SELFPAY ==
[2023-08-27 07:57] LABS: Glucose GTT-Gestation. Fasting 91 mg/dL (<105)
[2023-08-27 09:07] LABS: Glucose GTT-Gestational 1 Hr 184 mg/dL (<190)
[2023-08-27 10:04] LABS: Glucose GTT-Gestational 2 Hr 141 mg/dL (<165)
[2023-08-27 11:10] LABS: Glucose GTT-Gestational 3 Hr 113 L (<145)
== END | disposition home or self-care (01) ==
PROVIDERS: Referring Provider Obstetrics & Gynecology; Visit Provider Obstetrics & Gynecology
DX: O99.810 Abnormal glucose complicating pregnancy (principal); Z3A.00 Weeks of gestation of pregnancy not specified
CPT/HCPCS: 36415; 82951; 82952

== ENCOUNTER → 2023-10-08 | Outpatient (CLI) | payer OTHER, SELFPAY ==
[2023-10-08 11:49] LABS: Group B Strep DNA By PCR Negative (Negative); Internal Control PASS; Probe Check PASS; Specimen Processing Control PASS
== END | disposition home or self-care (01) ==
LOC: LABSPEC 10:12
PROVIDERS: Referring Provider Advanced Practice Midwife; Visit Provider Advanced Practice Midwife
DX: Z34.90 Encounter for supervision of normal pregnancy, unspecified, unspecified trimester (principal); Z3A.00 Weeks of gestation of pregnancy not specified
CPT/HCPCS: 87081; 87653

== ENCOUNTER 2023-10-19 09:06 | Outpatient (CLI) | payer OTHER, SELFPAY ==
[2023-10-19] VITALS (13 sets, daily range): BP systolic 110; BP diastolic 75; PULSE 67–92; TEMP 36.6; O2SAT 90–100; BMI 36.7
--- OUTSIDE RECORDS SUMMARY | 2023-10-19 09:16 | XMS RPT_ITS | CCD ---
Author Name Unknown Address [facility] [employer] [address] [place] [id number] Organization [facility] Care Team Providers Care Cardiac Technologist Name Role Phone TOLU DIOR Primary Care Unavailable OSMAR HERNANDEZ Attending Unavailable ROSIE RODRIGUEZ Referring Unavailable TOLU DIOR Primary Care Unavailable LUCHO VILLATORO Referring Unavailab TOLU Ramos Attending Unavailable Results Test Name Value Interpretation Reference Range Facil ity Encounters Encounter Date Encounter Type Care Provider Facility Start: 06-18-2023 End: 06-18-2023 ambulatory TOLU DIOR [facility] Start: 07-03-2022 End: 07-03-2022 [facility] Date Procedure Procedure Detail Performing Clinician Start: 12-30-2019 Follow-up visit Start: 10-13-2019 Follow-up visit Start: 09-23-2019 Follow-up visit Payers Date Payer Category Payer Unknown [id number] 1999 Unknown [id number] Unknown [id number] Unknown [id number] Summary Purpose Family History No Family History Records FoundNo Family History Records FoundNo Family History Records FoundNo Family History Records Found Advance Directives No Advanced Directives Records FoundNo Advanced Directives Records FoundNo Advanced Directives Records FoundNo Advanced Directives Records Found Additional Source Comments INFORMATION SOURCE (unrecogn ized section and content) DATE CREATED AUTHOR AUTHOR'S ORGANIZ ATION 03/04/2020 [employer] DATE CREATED AUTHOR AUTHOR'S ORGANIZ ATION 02/24/2021 [facility] DATE CREATED AUTHOR AUTHOR'S ORGANANTWAN ATION 06/19/2023 [facility] FOR RECORDS PERTAINING TO PATIENTS WHO ARE OR HAVE BEEN ENROLLED IN A CHEMICAL DEPENDENCY/SUBSTANCEABUSE PROGRAM, SOME INFORMATION MAY BE OMITTED. This clinical summary was aggregated from multiple sources. Caution should be exercised in using it in the provision of clinical care. This summary normalizes information from multiple sources, and as a consequence, information in this document may materially change the coding, format and clinical context of patient data. In addition, data may be omitted in some cases. CLINICAL DECISIONS SHOULD BE BASED ON THE PRIMARY CLINICAL RECORDS. [employer] [facility]. provides no warranty or guarantee of the accuracy or completeness of information in this document.
--- NOTE | 2023-10-21 13:05 | OB.TRI.HP_ITS ---
HPI - General General Date of Service: 10/19/23 Chief Complaint: contractions HPI Narrative JEANETTE CORNELL, is a 23 F who presents at 37+5 for contractions every 10 minutes with history of precipitous labor. no vb/lof. good fm. Maternal Data Information YASH Calculator Estimated Delivery Date Method Current WG Current Estimate 11/04/23 LMP (Uncertain) 38w 0d PFSH PFSH Medical History Anxiety and depression Marijuana smoker depression Routine cultures positive for HSV2 Susceptible to varicella (non-immune), currently Vaginal delivery Home Medications vitamin#30 30 mg iron-10 mg iron-folic acid 1 mg-omg3 capsule 1 cap PO 10/31/22 [History Last Taken 10/17/23 08:00] valacyclovir 1 gram tablet (Valtrex) 500 mg (1/2 x 1 gram) PO DAILY see provider #90 tabs 04/03/23 [Rx Last Taken 10/18/23 20:19] famotidine 20 mg tablet 20 mg PO DAILY 08/13/23 [History Last Taken 10/19/23 07:00] Allergy/AdvReac Type Severity Reaction Status Date / Time No Known Allergies Allergy Verified 10/19/23 09:18 Family History Father Hypertension Father Cancer Grandfather CAD (coronary artery disease) Paternal Uncle CAD (coronary artery disease) Paternal Surgical History History of wisdom tooth extraction, class IV edentulism Social History adopted: No household members: family housing: apartment number of children: 2 current occupational status: employed current occupation: 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 Date Name GA/Weeks Outcome Route Bth Weight Infant Gen Labor Lgth Anesthesia Del Locatn Provider FOB Unknown Missed AB- 10/201709/14/20 [place] 37 live - full term 6lbs 15oz Male [address] [facility] Oziel Artemio 09/14/22 Torres 38 live - full term Female [facility] Dr. Arteaga Delivery Date: 09/14/20 Last Updated by: Danelle Mcgowan Suspected triple 1; midline perineal laceration 2 degree Delivery Date: 09/14/22 Last Updated by: Ronit Contreras IAL Visit Details Expected Delivery Route/Plan Labor Preferences- CB/BF classes: no labor support person: Jose labor intervention preferences: [] pain management options preferred: limited intervention cut cord/dad catch: cord : yes PP control planned: PP TUBAL discussed possible routes of delivery and associated risks: [] special requests: [] Plans Covid status: discussed Flu vaccine: declines Tdap vaccine: given Rhogam: NA LARC form signed: yes Problem list reviewed and updated with the most current plan of care details and appropriate orders placed. Relevant counseling for the gestational age provided. Continue routine care and follow up unless otherwise noted in visit notes/problem list details OB Flowsheet Initial Weight: Not Recorded Date -?-?-?-?-?-?-?-?-?-?-?-?- EGA Weight BP Urine Prot -?-?-?-?-?-?-?-?-?-?-?-?- Glucose FHR FuHt Pres Dilation -?-?-?-?-?-?-?-?-?-?-?-?- Effaced St Visit Note 04/01/23 -?-?-?-?-?-?-?-?-?-?-?-?- 9w 0d 190 lb 4 oz 118/74 Nega tive -?-?-?-?-?-?-?-?-?-?-?-?- Negative 180 -?-?-?-?-?-?-?-?-?-?-?-?- JV- CRL consiste nt with LMP. has 6 month old baby at home. needs gct and wants NIPT. 04/29/23 -?-?-?-?-?-?-?-?-?-?-?-?- 13w 0d 190 lb 8 oz 112/76 Nega tive -?-?-?-?-?-?-?-?-?-?-?-?- Negative 155 -?-?-?-?-?-?-?-?-?-?-?-?- LC- no vb/crampi ng. early glucose 131, healthy weight reviewed. 05/28/23 -?-?-?-?-?-?-?-?-?-?-?-?- 17w 1d 189 lb 109/72 Trace -?-?-?-?-?-?-?-?-?-?-?-?- Negative 145 -?-?-?-?-?-?-?-?-?-?-?-?- JV- low risk NIP T. gender is a surprise. has anatomy scan scheduled for 06/18. took a job [place] 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 good fm. Desires PP Tubal. 07/23/23 -?-?-?-?-?-?-?-?-?-?-?-?- 25w 1d 193 lb 4 oz 112/76 Nega tive -?-?-?-?-?-?-?-?-?-?-?-?- Negative 135 26 -?-?-?-?-?-?-?-?-?-?-?-?- kw- no vb/lof/cr amping. good fm. no concerns. Glucose discussed and ordered. 08/13/23 -?-?-?-?-?-?-?-?-?-?-?-?- 28w 1d 197 lb 2 oz 118/82 Nega tive -?-?-?-?-?-?-?-?-?-?-?-?- Negative 143 28 -?-?-?-?-?-?-?-?-?-?-?-?- MH-NO VB, LOF. G ood Fm. Larc, tdap. Declines flu. 28wk labs pending 08/27/23 -?-?-?-?-?-?-?-?-?-?-?-?- 30w 1d 202 lb 6 oz 117/75 Nega tive -?-?-?-?-?-?-?-?-?-?-?-?- Negative 140 30 -?-?-?-?-?-?-?-?-?-?-?-?- SM- no vb lof go od fm no regulr ctx 3 hr gtt today awaiting results 09/17/23 -?-?-?-?-?-?-?-?-?-?-?-?- 33w 1d 203 lb 6 oz 108/73 -?-?-?-?-?-?-?-?-?-?-?-?- 135 34 -?-?-?-?-?-?-?-?-?-?-?-?- KW-no vb/lof/ctx . good fm. normal 3 hour. getting over viral illness. feeling better this week. has valtrex and will start at 34 weeks due to 36 week delivery. KW-no vb/lof/ctx. good fm. n ormal 3 hour. getting over viral illness. feeling better this week. has valtrex and will start at 34 weeks due to Hx of 36 week delivery. 10/08/23 -?-?-?-?-?-?-?-?-?-?-?-?- 36w 1d 203 lb 8 oz 121/82 Nega tive -?-?-?-?-?-?-?-?-?-?-?-?- Negative 140 36 Cephalic 3 -?-?-?-?-?-?-?-?-?-?-?-?- 60 -3 kw-no vb/l of/reg ctx. good fm. started Valtrex already. GBS today. Desires PP tubal in hospital if possible for work reasons. 10/15/23 -?-?-?-?-?-?-?-?-?-?-?-?- 37w 1d 206 lb 115/79 Negative -?-?-?-?-?-?-?-?-?-?-?-?- Negative 138 37 Cephalic 3 -?-?-?-?-?-?-?-?-?-?-?-?- 60 -3 MH-NO VB, LOF or reg CTX. No cervical change. NST FHR Rate Baby A Baseline: 125 Variability:: Moderate Accelerations:: 15 x 15 Decelerations:: None NST Reactive:: Yes FHR Category:: Category I Uterine Activity:: 15minutes Assessment & Plan (1) Uterine contractions: COMMENT: no cervical change, ctx spaced with less intensity safe for d/c home. PLAN: Patient presents for triage evaluation secondary to contractions with hx of precipitious labor and delivery FHT: Moderate variability reactive no decelerations category I tracing Pettit: irregular Contractions with now lessening ctx. Assessment and plan: Reactive NST, reassuring maternal and status patient discharged to home to follow-up in the office or return if ctx increase. See problem list details for additional plan information. Charges/Coding Procedures Urinary/Genital 52xxx-59xxx: 52650-71 non-stress test Interp
== END 2023-10-19 11:40 | disposition home or self-care (01) ==
LOC: WPOUT 09:11 → WP 09:11
PROVIDERS: Visit Provider Registered Nurse
DX: O47.1 False labor at or after 37 completed weeks of gestation (principal); Z3A.37 37 weeks gestation of pregnancy; Z79.899 Other long term (current) drug therapy
CPT/HCPCS: 59025; 59050; 99221; G0378

== ENCOUNTER 2023-11-04 11:25 | Inpatient (IN) | payer OTHER, SELFPAY ==
[2023-11-04] VITALS (21 sets, daily range): BP systolic 97–148; BP diastolic 56–96; PULSE 62–108; RESP 15–18; TEMP 36–36.6; O2SAT 83–100; BMI 35.2
--- OUTSIDE RECORDS SUMMARY | 2023-11-04 11:56 | XMS RPT_ITS | CCD ---
Author Name Unknown Address [address] [place] [address] Organization [facility] Care Team Providers Care Director Agricultural Services Name Role Phone TOLU DIOR Primary Care Unavailable OSMAR HERNANDEZ Attending Unavailable ROSIE RODRIGUEZ Referring Unavailable TOLU DIOR Primary Care Unavailable LUCHO VILLATORO Referring Unavailab TOLU Ramos Attending Unavailable Results Test Name Value Interpretation Reference Range Facil ity Encounters Encounter Date Encounter Type Care Provider Facility Start: 06-18-2023 End: 06-18-2023 ambulatory TOLU DIOR [facility] Start: 07-03-2022 End: 07-03-2022 ambulatory TOLU DIOR [facility] Procedures Date Procedure Procedure Detail Performing Clinician Start: 12-30-2019 Follow-up visit Start: 10-13-2019 Follow-up visit Start: 09-23-2019 Follow-up visit Payers Date Payer Category Payer Unknown [id number] [id number] 1999 Unknown [id number] Unknown [id number] Unknown [id number] Summary Purpose Family History No Family History Records FoundNo Family History Records FoundNo Family History Records FoundNo Family History Records Found Advance Directives No Advanced Directives Records FoundNo Advanced Directives Records FoundNo Advanced Directives Records FoundNo Advanced Directives Records Found Additional Source Comments INFORMATION SOURCE (unrecogn ized section and content) DATE CREATED AUTHOR AUTHOR'S ORGANIZ ATION 03/04/2020 [employer] DATE CREATED AUTHOR AUTHOR'S ORGANIZ ATION 02/24/2021 [facility] CREATED AUTHOR AUTHOR'S SHERRY ATION 06/19/2023 [facility] FOR RECORDS PERTAINING TO PATIENTS WHO ARE [...] BE BASED ON THE PRIMARY CLINICAL RECORDS. [employer] [facility]. provides no warranty or guarantee of the accuracy or completeness of information in this document.
[2023-11-04] MEDS: Lactated Ringers 1,000 ML 50 ML IV (12:08)
[2023-11-04 12:22] LABS: Absolute Lymphocyte Count 1.56 X10^3/uL (0.83-4.51); Absolute Neutrophil Count 5.2 X10^3/uL (2.0-7.7); Eosinophil# 0.03 X10^3/uL; Eosinophils% 0.4 % (0-5); Hematocrit 36.7 % (37-47); Hemoglobin 12.7 g/dL (12.0-15.0); Lymphocyte # 1.56 X10^3/ul (0.83-4.51); Lymphocyte % 21.7 % (19-41); Mean Corp Hgb Conc 34.6 g/dL (32-36); Mean Corpuscular Hgb 29.8 pg (27.0-32.0); Mean Corpuscular Volume 86.2 fL (81-99); Mean Platelet Vol. 10.8 fl (6.2-12.0); Monocyte# 0.39 X10^3/uL; Monocyte% 5.4 % (0-10); NRBC Flagged by Analyzer 0 % (0-5); Neutrophil # 5.19 X10^3/uL (2.7-7.7); Neutrophil % 72.2 % (47-70); Platelet Count 169 K/mm3 (150-450); RBC Distribution Width SD 42.9 fl (35.1-43.9); Red Blood Count 4.26 M/mm3 (4.2-5.4); White Blood Count 7.2 K/mm3 (4.4-11.0)
[2023-11-04] MEDS: Oxytocin 15 Units/NS 250ml 15 UNITS/250 ML IV.SOLN 2 UNITS IV (12:44)
--- NOTE | 2023-11-04 12:46 | HP.PCM.OB_ITS ---
HPI - General General Date of Admission: 11/04/23 HPI Narrative JEANETTE CORNELL, is a 23 y/o @ 40 weeks who presents to L&D for IOL due to advanced cervical dilation. She was found to be 6 cm dilated and has a history of fast deliveries. She is unsure if she wants and epidural at this time. She has a history of genital herpes, on suppressive therapy. She denies outbreaks in the last 2 weeks. Maternal Data Information YASH Calculator Estimated Delivery Date Method Current WG Current Estimate 11/04/23 LMP (Uncertain) 40w 0d PFSH PFS Medical History (Updated 11/04/23 @ 12:07 by Payam Boyle) Anxiety and depression Genital herpes affecting Marijuana smoker depression Routine cultures positive for HSV2 Susceptible to varicella (non-immune), currently Vaginal delivery Home Medications vitamin#30 30 mg iron-10 mg iron-folic acid 1 mg-omg3 capsule 1 cap PO 10/31/22 [History Last Taken 10/17/23 08:00] valacyclovir 1 gram tablet (Valtrex) 500 mg (1/2 x 1 gram) PO DAILY see provider #90 tabs 04/03/23 [Rx Last Taken 11/01/23 21:00 500 mg] famotidine 20 mg tablet 20 mg PO DAILY heartburn 08/13/23 [History Last Taken 11/03/23 21:00 20 mg] Allergy/AdvReac Type Severity Reaction Status Date / Time No Known Allergies Allergy Verified 11/04/23 11:55 Family History Father Hypertension Father Cancer Grandfather CAD (coronary artery disease) Paternal Uncle CAD (coronary artery disease) Paternal Surgical History History of wisdom tooth extraction, class IV edentulism Social History adopted: No household members: family housing: apartment number of children: 2 current occupational status: employed current occupation: [employer] pets and animals: No history of recent travel: No sexually active: Yes Smoking Status: Never smoker alcohol intake: current details: not while substance use type: does not use well-balanced diet: daily or most days caffeine: No eating out: 1-3 times/week during the past year weight has: remained stable what type of physical activity do you participate in: none gilbert/orthodox: None seatbelt use: always do you feel safe at home: Yes 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 Date Name GA/Weeks Outcome Route Bth Weight Infant Gen Labor Lgth Anesthesia Del Locatn Provider FOB Unknown Missed AB- 10/201709/14/20 Hadley 37 live - full term 6lbs 15oz Male 20 hours epidural [facility] Oziel Artemio 09/14/22 Torres 38 live - full term Female [facility] Dr. Arteaga Delivery Date: 09/14/20 Last Updated by: Danelle Mcgowan Suspected triple 1; midline perineal laceration 2 degree Delivery Date: 09/14/22 Last Updated by: Ronit Contreras IAL Visit Details Expected Delivery Route/Plan Labor Preferences- CB/BF classes: no labor support person: Jose labor intervention preferences: pain management options preferred: open to epidural, desires unmedicated. cut cord/dad catch: cord : yes PP control planned: PP TUBAL discussed possible routes of delivery and associated risks: [] special requests: [] Plans Covid status: discussed Flu vaccine: declines Tdap vaccine: given Rhogam: NA LARC form signed: yes Problem list reviewed and updated with the most current plan of care details and appropriate orders placed. Relevant counseling for the gestational age provided. Continue routine care and follow up unless otherwise noted in visit notes/problem list details OB Flowsheet Initial Weight: Not Recorded Date -?-?-?-?-?-?-?-?-?-?-?-?- EGA Weight BP Urine Prot -?-?-?-?-?-?-?-?-?-?-?-?- Glucose FHR FuHt Pres Dilation -?-?-?-?-?-?-?-?-?-?-?-?- Effaced St Visit Note 04/01/23 -?-?-?-?-?-?-?-?-?-?-?-?- 9w 0d 190 lb 4 oz 118/74 Nega tive -?-?-?-?-?-?--?-?-?-?-?-?- Negative 180 -?-?-?-?-?-?-?-?-?-?-?-?- JV- CRL consiste nt with LMP. has 6 month old baby at home. needs gct and wants NIPT. 04/29/23 -?-?-?-?-?-?-?-?-?-?-?-?- 13w 0d 190 lb 8 oz 112/76 Nega tive -?-?-?-?-?-?-?-?-?-?-?-?- Negative 155 -?-?-?-?-?-?-?-?-?-?-?-?- LC- no vb/crampi ng. early glucose 131, healthy weight reviewed. 05/28/23 -?-?-?-?-?-?-?-?-?-?-?-?- 17w 1d 189 lb 109/72 Trace -?-?-?-?-?-?-?-?-?-?-?-?- Negative 145 -?-?-?-?-?-?-?-?-?-?-?-?- JV- low risk NIP T. gender is a surprise. has anatomy scan scheduled for 06/18. took a job in [place]. 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 good fm. Desires PP Tubal. 07/23/23 -?-?-?-?-?-?-?-?-?-?-?-?- 25w 1d 193 lb 4 oz 112/76 Nega tive -?-?-?-?-?-?-?-?-?-?-?-?- Negative 135 26 -?-?-?-?-?-?-?-?-?-?-?-?- kw- no vb/lof/cr amping. good fm. no concerns. Glucose discussed and ordered. 08/13/23 -?-?-?-?-?-?-?-?-?-?-?-?- 28w 1d 197 lb 2 oz 118/82 Nega tive -?-?-?-?-?-?-?-?-?-?-?-?- Negative 143 28 -?-?-?-?-?-?-?-?-?-?-?-?- MH-NO VB, LOF. G ood Fm. Larc, tdap. Declines flu. 28wk labs pending 08/27/23 -?-?-?-?-?-?-?-?-?-?-?-?- 30w 1d 202 lb 6 oz 117/75 Nega tive -?-?-?-?-?-?-?-?-?-?-?-?- Negative 140 30 -?-?-?-?-?-?-?-?-?-?-?-?- SM- no vb lof go od fm no regulr ctx 3 hr gtt today awaiting results 09/17/23 -?-?-?-?-?-?-?-?-?-?-?-?- 33w 1d 203 lb 6 oz 108/73 -?-?-?-?-?-?-?-?-?-?-?-?- 135 34 -?-?-?-?-?-?-?-?-?-?-?-?- KW-no vb/lof/ctx . good fm. normal 3 hour. getting over viral illness. feeling better this week. has valtrex and will start at 34 weeks due to 36 week delivery. KW-no vb/lof/ctx. good fm. n ormal 3 hour. getting over viral illness. feeling better this week. has valtrex and will start at 34 weeks due to Hx of 36 week delivery. 10/08/23 -?-?-?-?-?-?-?-?-?-?-?-?- 36w 1d 203 lb 8 oz 121/82 Nega tive -?-?-?-?-?-?-?-?-?-?-?-?- Negative 140 36 Cephalic 3 -?-?-?-?-?-?-?--?-?-?-?-?- 60 -3 kw-no vb/l of/reg ctx. good fm. started Valtrex already. GBS today. Desires PP tubal in hospital if possible for work reasons. 10/15/23 -?-?-?-?-?-?-?-?-?-?-?-?- 37w 1d 206 lb 115/79 Negative -?-?-?-?-?-?-?-?-?-?-?-?- Negative 138 37 Cephalic 3 -?-?-?-?-?-?-?-?-?-?-?-?- 60 -3 MH-NO VB, LOF or reg CTX. No cervical change. 10/23/23 -?-?-?-?-?-?-?-?-?-?-?-?- 38w 2d 202 lb 2 oz 114/82 -?-?-?-?-?-?-?-?-?-?-?-?- 130 37 Cephalic 4 -?-?-?-?-?-?-?-?-?-?-?-?- 70 -2 kw-no vb/l of/ctx. good fm. membrane sweep today. labor precautions. 10/30/23 -?-?-?-?-?-?-?-?-?-?-?-?- 39w 2d 206 lb 128/78 Negative -?-?-?-?-?-?-?-?-?-?-?-?- Negative 140 38 Cephalic 4 .5 -?-?-?-?-?-?-?-?-?-?-?-?- 70 -2 LC- no vb/ lof/ctx. good fm. membranes swept today. 11/04/23 -?-?-?-?-?-?-?-?-?-?-?-?- 40w 0d 206 lb 4 oz 123/83 Nega tive -?-?-?-?-?-?-?-?-?-?-?-?- Negative 150 38 Cephalic 5 .5 -?-?-?-?-?-?-?-?-?-?-?-?- 80 -2 LC- no vb/ consistent ctx/lof. good fm. will do elective IOL today due to distance/hx of precipitous delivery. pitocin/AROM plan. ROS Constitutional Constitutional: Denies change in weight, fatigue, fever(s), headache(s), poor appetite or weakness Eyes Eyes: Denies blurry vision, change in vision, seeing flashes or spots in vision ENT HEENT: Denies dizziness, headache(s), loss taste/smell or sore throat Cardiovascular Cardiovascular: Denies chest pain, dizziness, dyspnea, irregular heart rhythm, leg edema, palpitations, rapid heart rate or vomiting Respiratory/Chest Respiratory/Chest: Denies chest tightness, cough, dyspnea or breast pain Gastrointestinal Gastrointestinal: Denies abdominal pain, anorexia, constipation, cramping, diarrhea, hemorrhoids, vomiting or weight changes Genitourinary Genitourinary: Denies dysuria, flank pain, genital lesions, genital pain, urinary frequency or urinary urgency Musculoskeletal Musculoskeletal: Denies back pain, difficulty walking, joint pain, limited range of motion, muscle cramps or numbness Integumentary Integumentary: Denies lesions or unusual bruising Neurologic Neurologic: Denies abnormal movements, abnormal speech, dizziness, numbness, seizure-like activity or syncope Psychiatric Psychiatric: Denies anxiety, behavioral changes, change in appetite, change in libido, cognitive impairment, confusion, depression, difficulty concentrating, hallucinations or suicidal thoughts Endocrine Endocrinology: Denies excessive sweating, polydipsia or polyuria Hematologic/Lymphatic Hematologic/Lymphatic: Denies easy bleeding, easy bruising or lymphadenopathy Allergic/Immunologic Allergic/Immunologic: Denies itchy eyes, lip swelling, seasonal rhinorrhea, rhinitis, throat swelling, tongue swelling, eczemia, wheezing or asthma Vital Signs Vital Signs Vital Signs: 11/04/23 11:49 11/04/23 11:49 11/04/23 12:19 Pulse Rate 108 H Blood Pressure 133/91 H 136/83 H BP Systolic 133 136 BP Diastolic 91 83 11/04/23 12:19 Pulse Rate 96 Blood Pressure BP Systolic BP Diastolic Weight Weight: 205 lb 4.006 oz Body Mass Index (BMI) 35.2 Physical Exam Const alert, oriented x3, no apparent distress and healthy appearing General Appearance: cooperative; Negative for anxious HEENT normocephalic Face and Sinus: normal facial exam Eyes EOMs intact bilaterally and no scleral icterus General Eye: normal appearance of both eyes Neck full ROM and supple Lymph Lymphatic: no lymphadenopathy noted Chest Chest: abnormal inspection of the chest Resp normal respiratory effort Effort and Inspection: able to speak in complete sentences Cardio regular rate GI soft to palpation and non-tender Inspection: gravid Palpation: soft; Negative for tender external exam normal Amniotic Fluid: ROM+plus Back/Spine no CVA tenderness Extremity normal to inspection, full ROM and no clubbing, cyanosis or edema General Extremity: Negative for calf tenderness or edema Skin Lesions: no lesions Rashes: no rashes Psych mental status grossly normal Labs Labs Labs: Blood Type A POSITIVE Antibody Screen NEGATIVE Hct 36.7 % (37-47) L Hgb 12.7 g/dL (12.0-15.0) Syphilis Total Ab Non-reactive VZV IgG Antibody 368 index (Immune >165) Rubella IgG Antibody Reactive (Nonreactive) Hep Bs Antigen Non-Reactive (Nonreactive) Hepatitis C Antibody Non-Reactive (Nonreactive) Chlamydia DNA (ANTONINO) Negative (Negative) N.gonorrhoeae DNA (ANTONINO) Negative (Negative) HIV 1&2 Antibody Non-Reactive (Nonreactive) Glucose 1 Hr 50 gm 170 mg/dL (70-140) H Gest Glucose Tolerance MG/DL Group B Strep DNA Negative (Negative) Rhogam given: No Assessment & Plan (1) Uterine contractions: COMMENT: no cervical change, ctx spaced with less intensity safe for d/c home. (2) Contraception management: QUALIFIERS: Contraceptive encounter type: other general counseling and advice Qualified Code(s): Z30.09 - Encounter for other general counseling and advice on contraception COMMENT: desires tubal PP while in hospital if possible. (3) Short interval between pregnancies affecting , antepartum: (4) Hx of herpes genitalis: COMMENT: valtrex at 36 weeks (5) Hx of depression, currently : (6) Supervision of high-risk : QUALIFIERS: Trimester: third trimester Qualified Code(s): O09.93 - Supervision of high risk , unspecified, third trimester COMMENT: PRR , YASH 11/04/22 Melissa Estes (7) : QUALIFIERS: Weeks of gestation: 40 weeks Qualified Code(s): Z3A.40 - 40 weeks gestation of COMMENT: GBS neg, NIPT low risk negative ( sex not reported) , carrier and afp declined, anatomy nl (8) Abnormal glucose affecting : COMMENT: failed 1 hr GCT. normal 3 Hr GTT PLAN: Plan Patient presents IOL, plan management for with pitocin/AROM. Pain management: plans epidural. GBS negative. Management of any complications: none I have reviewed the [facility] and made any clinically relevant updates.
[2023-11-04 13:22] LABS: Syphilis Antibodies Non-reactive
[2023-11-04] MEDS: Oxytocin 15 Units/NS 250ml 15 UNITS/250 ML IV.SOLN 83 UNITS IV (16:45)
--- NOTE | 2023-11-04 16:45 | OP.PCM_ITS ---
Assessment & Plan (1) Short interval between pregnancies affecting , antepartum: (2) Hx of herpes genitalis: COMMENT: valtrex at 36 weeks (3) Hx of depression, currently : (4) Supervision of high-risk : QUALIFIERS: Trimester: third trimester Qualified Code(s): O09.93 - Supervision of high risk , unspecified, third trimester COMMENT: PRR , YASH 11/04/22 Melissa Estes (5) : QUALIFIERS: Weeks of gestation: 40 weeks Qualified Code(s): Z3A.40 - 40 weeks gestation of COMMENT: GBS neg, NIPT low risk negative ( sex not reported) , carrier and afp declined, anatomy nl (6) Abnormal glucose affecting : COMMENT: failed 1 hr GCT. normal 3 Hr GTT Maternal Data Information YASH Calculator Estimated Delivery Date Method Current WG Current Estimate 11/04/23 LMP (Uncertain) 40w 0d Gestational age: 40 weeks 0 days Vaginal Delivery Maternal Presentation Maternal Presentation: Medically Indicated Induction Maternal Presentation: patient was seen in office with cervical dilation of 6 cm. She was induced for long distance to hospital. Type of Induction: Pitocin and Amniotomy Operative Information Date of Procedure: 11/04/23 Pre-Operative Diagnosis: 23 y/o @ 40 weeks 0 days Post-Operative Diagnosis: 23 y/o @ 40 weeks 0 days Surgery / Procedure Performed: Spontaneous Vaginal Delivery Type of Anesthesia: None Estimated Blood Loss: 100cc Time of Delivery: 16:05 Findings Description of Procedure: Patient began pushing and delivered the head in the PAUL presentation. The head was delivered atraumatically. The anterior and posterior shoulders delivered without complication followed by the rest of the infant and the infant was placed on the maternal abdomen. Delayed cord clamping was employed for approximately 60 seconds. Cord was clamped and cut and gentle traction was applied to the cord and the placenta delivered spontaneously immediately following it was noted to be intact with three-vessel cord. The perineum and vagina were inspected and noted to have no laceration. EBL was 100 cc. Patient and infant tolerated delivery well. Presentation: Vertex Amniotic Membrane Rupture Type: Spontaneous Amniotic Fluid Description: Clear Placental Delivery Description: Spontaneous Placenta Disposition: [facility] Cord Vessel Description: 3 Vessels Cord Entanglement: None A Gender: Female (1 minute): 8 (5 minute): 9 Delayed Cord Clamping: Yes Post Vaginal Delivery Medications Given After Delivery: IV Pitocin Episiotomy Description: None Laceration: None Complication Complications: None Multi Select Codes Urinary/Genital Urinary/Genital CPT Codes: 04835 Vaginal Delivery [facility]
--- NOTE | 2023-11-04 17:00 | DCINST_ITS ---
Discharge Instructions Diet Discharge Diet: No restrictions Activity Discharge Activity: Return to Normal Activity, May Not Drive (while taking narcotic pain medications.) and May Shower May resume sexual activity in: 4-6 weeks Dressing / Incision Call your doctor if your incision/area has: Continuous Slow Oozing, Sudden Increased Bleeding, Increased Pain/ Swelling, Increased Redness and Foul Smelling Discharge Follow Up Care Please Follow Up With: Tamika Osei, DO When: Call [phone] to make an appointment with your doctor in 6 weeks. If you had elevated blood pressure or 4th degree laceration, you will need to be seen in 2 weeks. Test Results: Test results from this visit will be discussed in further detail at your follow- up appointment, if applicable. Discharge Plan Admission Admit Date/Time: 11/04/23 11:25 Attending Provider: Tamika Osei Primary Care Provider: Care Physician,No Primary Discharge Orders/Prescriptions Prescriptions: No Action PNV #[id number] 30 mg iron-10 mg iron-1 mg capsule 1 cap PO famotidine 20 mg tablet 20 mg PO DAILY valacyclovir [Valtrex] 1 gram tablet 500 mg PO DAILY Qty: 90 3RF Referrals / Follow Up: Care Physician,No Primary [Primary Care Provider] -
[2023-11-04] MEDS: Acetaminophen 500 MG Tablet 1000 MG PO (20:09)
[2023-11-05] VITALS (7 sets, daily range): BP systolic 109–124; BP diastolic 61–73; PULSE 51–73; RESP 16; TEMP 36.1–36.9; O2SAT 98–100
[2023-11-05] MEDS: Ondansetron 4 MG/2 ML Vial IV (01:44)
[2023-11-05] MEDS: 0.9% Saline Lock 10 ML Syringe IV (01:44)
[2023-11-05] MEDS: Acetaminophen 500 MG Tablet 1000 MG PO ×2 (02:37→08:29)
[2023-11-05] MEDS: Naproxen 500 MG Tablet PO ×2 (06:24→14:38)
--- NOTE | 2023-11-05 07:24 | PN.OBGYN_ITS ---
Subjective Subjective Patient doing well without complaints. Tolerating PO. Ambulating and voiding without difficulty. feeding well. Denies chest pain, shortness of breath, calf pain/swelling, fevers, chills, lightheadedness. Objective Data Objective Data Vital Signs: Vital Signs Temp Pulse Resp BP Pulse Ox O2 Del Method 97.6 F L 52 L 16 124/73 H 99 Room Air 11/05/23 03:40 11/05/23 03:40 11/05/23 03:40 11/05/23 03:40 11/05/23 03:40 11/05/23 03:40 Oxygen Delivery Method Room Air Weight: 205 lb 4.006 oz Body Mass Index (BMI) 35.2 Intake & Output: Intake and Output for Last 24 Hours 11/03/23 11/04/23 11/05/23 23:59 23:59 23:59 Intake Total 699.34 / 699.34 Output Total 1000 / 1000 Balance -300.66 / -300.66 Lab / Micro Data 11/04/23 11:55 Labs: Laboratory Results - last 24 hr 11/04/23 11:55: WBC 7.2, RBC 4.26, Hgb 12.7, Hct 36.7 L, MCV 86.2, MCH 29.8, MCHC 34.6, RDW Std Deviation 42.9, RDW Coeff of Nick 14.0, Plt Count 169, MPV 10.8, Immature Gran % (Auto) 0.300, Neut % (Auto) 72.2 H, Lymph % (Auto) 21.7, Kaufman % (Auto) 5.4, Eos % (Auto) 0.4, Baso % (Auto) 0.0, Absolute Neuts (auto) 5.2, Absolute Lymphs (auto) 1.56, Nucleated RBC % 0, Syphilis Total Ab Non- reactive, Blood Type A POSITIVE, Antibody Screen NEGATIVE ROS Constitutional Constitutional: Reports systems reviewed and no addt'l complaints, except as documented Cardiovascular Cardiovascular: Reports systems reviewed and no addt'l complaints, except as documented Respiratory/Chest Respiratory/Chest: Reports systems reviewed and no addt'l complaints, except as documented Gastrointestinal Gastrointestinal: Reports systems reviewed and no addt'l complaints, except as documented Physical Exam Const alert, oriented x3 and no apparent distress HEENT Head and Scalp: atraumatic Resp normal respiratory effort GI soft to palpation and non-tender Bimanual Exam - Vag & Uterus: uterus non-tender Uterus Palpation: uterus fundus firm (below Umbilicus) Assessment & Plan (1) Vaginal delivery: COMMENT: jv PLAN: Plan s/p PPD # 1 1. routine post delivery care 2. doing well feeding- support given 3. rh positive 4. rubella immune Capacity Legal Toolmaker Grade Three Reflex Medical hold order details:: IF a medical hold is selected below, a suggested order for a MEDICAL HOLD will reflex upon signing the document. Next of kin: [place] law dictates a PRIORITY LIST for identifying legal decision-maker/legal next of kin in the following order (LNOK): 1st: The patient?s legal guardian, if any 2nd: The patient's spouse (if status is questionable, consult Risk Management) 3rd: The patient?s adult child(reymundo) (majority, if multiple children) 4th: The patient?s parents 5th: The patient?s adult siblings (majority, if multiple children siblings)
[2023-11-05] MEDS: Famotidine 20 MG Tablet PO (08:11)
--- NOTE | 2023-11-05 14:39 | CASEMGMT ---
Social Work Assessment Labor and Delivery Unit Patient Address:[facility] [place] [address] Phone number: [phone] Date of Referral: 11/04/23 Time of Referral:? [id number] Referred By: Tamika Osei Date of Intervention: ??11/05/23 Time of Intervention:? 1000 Reason for Referral:? hx depression Sw completed chart review and acknowledges social work consult entered for maternal history of depression. Sw presented to bedside and introduced self to mother of baby (MOB- Colten) and father of baby (FOB- Jose). Sw explained sw role during current hospitalization and completed psychosocial assessment. Sw asked FOB to step out of room momentarily so that MOB could complete Glenview Depression Scale. FOB stepped out willingly and respectfully. History obtained from: medical records, MOB and FOB Household composition: Currently residing in the family home is MOB, ALLEN, MOB's older son (Hadley) and MOB and ALLEN's first daughter (Melissa) and now baby. ALLEN has an older daughter, Heladio (5 years old) who does not reside with the family. Patient's parent/guardian status:? ?MILTON states that she and FOMaster have been together for 2.5 years. MOB and FOB now have two children together. Both parents have another child with another partner. While meeting with MILTON privately, she denies any concerns or issues with domestic violence or intimate partner violence. Medical History: ?MILTON is 23 year old female who is 4, para 2, now 3 following labor and delivery of . MILTON did experience early first trimester loss prior to first baby. MILTON received routine care during with [facility]. MILTON delivered baby on 11/04/23 at 40 weeks gestation via vaginal delivery. Baby girl, named Radha, was born weighing 7lb 5oz and her apgars were 8 and 9 at one and five minutes of life respectfully. MILTON is breast feeding and has follow up outpatient appointment scheduled with . MILTON states that baby will be followed by Dr. Silver for pediatrics. Educational Status:? Both parents graduated high school, ALLEN states that he did require an IEP when he was younger for math. MOB obtained her associates degree in [employer] and FOB obtained his bachelors degree in [employer]. Financial Status: Both parents are gainfully employed outside of the home. 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 ALLEN is able to take a week off of work now that baby has been born. Infant Supplies:?? Parents state that they have obtained all necessary baby supplies, including: car seat, safe sleep space, clothes, diapers, wipes. Childcare/Caregiver(s):?MILTON will be the primary caregiver to baby along with ALLEN when he is not working. When both parents are at work and need assistance with childcare, maternal grandma will be the svp research & ebusiness operations. MILTON states that maternal grandma is helping with the older siblings right now while they are at the hospital. Transportation:?? No transportation barriers at this time. Programs/Agencies Involved: ???MILTON states that they are over income for assistance provided through community resources. Children Services/Legal Issues:??? No history of involvement, no issues or concerns warranted at this time. Behavioral Health Issues: ??Mental Health History:??ALLEN states that he thinks he had ADHD when he was younger, and possibly why he struggled in school. ALLEN states that this has not been an issue for him for a long time. MILTON states that she has been diagnosed with anxiety, depression. and has a history with depression. MILTON states that her anxiety and depression she is able to cope with, and they were only situational. MILTON states that she first experienced depression when her first baby was born, and then when she had her second she feels as though she may have only experienced the baby blues. MILTON states that both times she talked to her OBGYN about medication she could take while breast feeding, and was temporarily taking sertraline. ? MILTON completed the Glenview Depression Scale and her score was a 2. provided education and support. Substance Use History:?MILTON states that she has a history of using marijuana, but has not used it in a very long time- unsure of when last use was. In chart review there was a social work note entered when MILTON had her son in 2019, at which time she also disclosed substance use, but her urine screen and baby meconium screen were both negative. Referral to Children Services was not made at that time. ? Family History:?Parents deny family history of addiction/ substance use and significant mental health history. ? Drug Screens: ??no urine screen observed in chart review for current hospitalization. Family/Social Stressors:? MOB denies any family stressors at this time. Support Systems: MOB states that both sets of grandmas are supportive. Depression/Shaken Baby/Safe Sleeping:? Sw educated parents on signs and symptoms of baby blues and depression. Sw provided parents with literature to review that also provides them with list of appropriate coping mechanisms should MOB experience any mental health symptoms. Parents expressed understanding. Sw educated parents on shaken baby prevention and ABCs of safe sleep. Parents expressed understanding. ASSESSMENT:? MOB and baby admitted following labor and delivery. MOB and FOB engaged and pleasant during psychosocial assessment. MOB observed providing appropriate and loving hands on care to . MOB made eye contact with sw during assessment as well as smiled and laughed. MOB with mental health history, including depression. MOB being proactive and has already asked her doctor to put in a script for sertraline. MOB receptive to sw involvement and support and thanked sw for information provided. PLAN:? MOB and baby to be discharged when medically ready. ?No other services requested or indicated. Alma Rosa Cheema, MANAGER CULTURE, [employer] REWINDER
== END 2023-11-05 17:15 | disposition home or self-care (01) | DRG 807 ==
PROVIDERS: Registered Nurse; Admitting Provider Obstetrics & Gynecology; Visit Provider Obstetrics & Gynecology
DX: O98.32 Other infections with a predominantly sexual mode of transmission complicating childbirth (principal); Z37.0 Single live birth; O99.344 Other mental disorders complicating childbirth; A60.00 Herpesviral infection of urogenital system, unspecified; F32.A Depression, unspecified; F41.9 Anxiety disorder, unspecified; Z3A.40 40 weeks gestation of pregnancy; O48.0 Post-term pregnancy; Z79.899 Other long term (current) drug therapy
CPT/HCPCS: 59025; 59050; 85025; 86780; 86850; 86900; 86901; 99221; J7120; A4216; G0378; J2405

== ENCOUNTER 2023-12-29 11:58 | Day surgery (SDC) | payer OTHER, SELFPAY ==
--- NOTE | 2023-12-29 13:19 | FALS_PTH ---
PATHOLOGY RESULTS PATIENT: JEANETTE CORNELL LOC: [facility] U#:[id number] AGE/SX: 23/ ROOM: RE12/29/[address]: Dr. Tamika Osei DO : 2000 BED: DIS: 12/29/2023 SPEC #: [id number] RECD: 12/29/23 15:40 STATUS: ABRAM BARTOLOME #: [id number] HEMA: 12/29/23 13:[address]: Tamika Osei DEPT: SURGICAL PATHOLOGY RECD BY: Yesenia Henriquez ENTERED: 12/30/23 09:34 SP TYPE: FALL TUBES OT DR: No Primary Care Phys Tissues: Fallopian tube Procedures: Surgery Specimen Level II HEADER OPERATION: Laparoscopic bilateral salpingectomy PRE-OP DIAGNOSIS: Sterilization TISSUE SUBMITTED: Bilateral fallopian tubes MICROSCOPIC DIAGNOSIS Bilateral fallopian tubes, salpingectomy; Bilateral fallopian tubes, no pathologic diagnosis. SJ/mr 12/31/2023 MICROSCOPIC DESCRIPTION Slides are reviewed. GROSS DESCRIPTION Received in fixative is one container labeled with the patient's name and designated bilateral fallopian tubes. The specimen consists of bilateral fallopian tubes including fimbrial ends measuring 7.5 cm in length and 0.5 cm in diameter and 8.5cm in length and 0.7cm in diameter. The fallopian tubes are not identified as right or left. Sections reveal unremarkable cut surfaces. Certified Registered Nurse Practitioner sections are submitted in two cassettes with each cassette containing one fallopian tube. / ORLANDO: 12/30/2023 TC:4 CPT: 90458 x2
[2023-12-29] MEDS: Bupivacaine 0.25% 30 ML Vial (13:41)
--- NOTE | 2023-12-29 16:16 | OP.PCM_ITS ---
Problems Associated Problem List Diagnoses (1) Encounter for sterilization: Report of Operation Date of Procedure: 12/29/23 Pre-Operative Diagnosis: desires permanent sterilization Post-Operative Diagnosis: desires permanent sterilization Surgery/Procedure Performed:: laparoscopic bilateral salpingectomy Description of Surgical Findings:: Normal uterus, tubes, and ovaries Surgeon: Tamika Osei floor runner: Wing Landry Type of Anesthesia: General Estimated Blood Loss (mL): 5cc Description of Procedure: Patient was taken in the operating room and was placed under general anesthesia was prepped and draped in normal sterile fashion in the dorsal lithotomy position. Bladder was drained of clear urine and SCDs were on preoperatively. Uterus was sounded and a uterine manipulator was placed after dilating. Attention was then paid to the abdominal portion of the procedure and the umbilicus was elevated and injected with Marcaine and after a 5 mm incision was made and a 5 mm trocar was inserted into the abdomen under direct visualization using the laparoscope. Abdomen was insufflated with CO2 gas and a 5 mm optical trocar was placed under direct visualization. A left lower quadrant 5 mm port and a mini grasper suprapubically were placed under direct visualization. Uterus was well visualized and bilateral fallopian tubes identified and bilateral tubes were elevated and transecting across the mesosalpinx and the attachment to the uterine corpus bilaterally the tubes were removed without complication. Excellent hemostasis was noted. Fallopian tubes were removed through the lower port sites without complication. Liver and upper abdomen were visualized notably within normal limits and no other gross abnormalities were seen in the abdomen. All instruments removed from the abdomen after gas was desufflated. Port sites were closed with 3-0 Monocryl Steri's and op sites were applied. All instruments removed from the vagina and patient was awoken and taken recovery in stable condition. Complications none Admit VTE Documentation VTE Present on Admission: No VTE Mechan Device Prophylaxis: SCD's VTE Pharm Prophylaxis ordered?: No Multi Select Codes Urinary/Genital Urinary/Genital CPT Codes: 65722 Laproscopic BS/O
[2023-12-29 19:43] LABS: Internal QC Validated? YES +Cl - CLEAR BKGD; Pregnancy, Urine Negative Negative; Record Kit Lot#,Urine Preg 718086
[2023-12-29 20:17] LABS: Hematocrit 36.1 % (37-47); Mean Corp Hgb Conc 33.2 g/dL (32-36); Mean Corpuscular Hgb 27.8 pg (27.0-32.0); Mean Corpuscular Volume 83.8 fL (81-99); Mean Platelet Vol. 10.3 fl (6.2-12.0); Platelet Count 184 K/mm3 (150-450); RBC Distribution Width CV 12.3 % (11.6-14.6); RBC Distribution Width SD 37.8 fl (35.1-43.9); Red Blood Count 4.31 M/mm3 (4.2-5.4)
== END 2023-12-29 15:14 | disposition home or self-care (01) ==
LOC: SDC 11:58 → AC 11:59
PROVIDERS: Referring Provider Obstetrics & Gynecology; Visit Provider Obstetrics & Gynecology
PROC: (CPT 58661; principal; 2023-12-29 13:10)
DX: Z30.2 Encounter for sterilization (principal)
CPT/HCPCS: 58661; 00840; 81025; 85027; 86850; 86900; 86901; 88302; J7120; J2405

== ENCOUNTER → 2024-07-27 | Outpatient (CLI) | payer OTHER, SELFPAY ==
[2024-07-27 14:06] LABS: HIV - WCH Non-Reactive (Nonreactive); Hepatitis B Surface Antigen Non-Reactive (Nonreactive); Hepatitis C Antibody Non-Reactive (Nonreactive); Syphilis Antibodies Non-reactive
[2024-07-29 20:08] LABS: Chlamydia By Nucleic Acid AMP Negative (Negative); Gonococcus By Nucleic Acid AMP Negative (Negative)
== END | disposition home or self-care (01) ==
LOC: WOBLAB 12:00
PROVIDERS: Referring Provider Nurse Practitioner Family; Visit Provider Nurse Practitioner Family
DX: N89.8 Other specified noninflammatory disorders of vagina (principal)
CPT/HCPCS: 36415; 86703; 86780; 86803; 87070; 87205; 87340; 87491; 87591

== ENCOUNTER → 2025-01-13 | Outpatient (CLI) | payer OTHER, SELFPAY ==
[2025-01-13 12:21] LABS: Absolute Lymphocyte Count 1.94 X10^3/uL (0.83-4.51); Absolute Neutrophil Count 3.8 X10^3/uL (2.0-7.7); Basophil# 0.01 X10^3/uL; Basophil% 0.2 % (0-1); Eosinophil# 0.05 X10^3/uL; Eosinophils% 0.8 % (0-5); Hematocrit 41.3 % (37-47); Hemoglobin 14.2 g/dL (12.0-15.0); Lymphocyte # 1.94 X10^3/ul (0.83-4.51); Lymphocyte % 30.6 % (19-41); Mean Corp Hgb Conc 34.4 g/dL (32-36); Mean Corpuscular Hgb 28.7 pg (27.0-32.0); Mean Corpuscular Volume 83.6 fL (81-99); Mean Platelet Vol. 10.5 fl (6.2-12.0); Monocyte% 7.9 % (0-10); NRBC Flagged by Analyzer 0 % (0-5); Neutrophil # 3.83 X10^3/uL (2.7-7.7); Neutrophil % 60.3 % (47-70); Platelet Count 256 K/mm3 (150-450); RBC Distribution Width CV 12.8 % (11.6-14.6); RBC Distribution Width SD 38.5 fl (35.1-43.9); Red Blood Count 4.94 M/mm3 (4.2-5.4); White Blood Count 6.3 K/mm3 (4.4-11.0)
[2025-01-13 13:16] LABS: ALB/GLOB Ratio 1.4 RATIO (0.9-2.4); AST(SGOT) 15 U/L (<=31); Alanine Aminotransfer ALT/SGPT 11 U/L (<=34); Albumin, Serum 4.7 g/dL (3.5-5.0); Alkaline Phosphatase 58 U/L (35-104); Anion Gap 13 (5-15); BUN 17 mg/dL (4-19); BUN/Creat Ratio 26.4 RATIO (10-20); Calcium,Total 9.8 mg/dL (7.6-11.0); Carbon Dioxide 21.7 mmol/L (21.0-32.0); Chloride 105 mmol/L (98-108); Creatinine, Serum 0.65 mg/dL (0.70-1.20); EST Glomerular Filtration Rate 125 (>60); Globulin 3.3 g/dL (2.2-4.2); Glucose 106 mg/dL (70-99); Sodium Level 139 mmol/L (133-145); Total Bilirubin 0.99 mg/dL (0.00-1.30)
== END | disposition home or self-care (01) ==
PROVIDERS: Referring Provider Nurse Practitioner Family; Visit Provider Nurse Practitioner Family
DX: Z12.4 Encounter for screening for malignant neoplasm of cervix (principal); N92.6 Irregular menstruation, unspecified; Z13.29 Encounter for screening for other suspected endocrine disorder
CPT/HCPCS: 36415; 80053; 84439; 84443; 85025; 88175; G0145